=== PATIENT | male | born 1955 | race African-American/Black ===

== ENCOUNTER 2017-03-09 10:58 | Emergency (ER) | payer MEDICAID, OTHER ==
[~2017-03-09] VITALS: Ht 160 cm; Wt 84.0 kg
[~2017-03-09 10:58] MED LIST: ATEN-42 PO; ATOR20TA PO; CALC-816 PO; DOCU-272 PO; FERR-63 PO; HYDR25TA PO; KEPP500 PO; LACT10SO6 MT; LISI10TA5 PO; LORA10TA7 PO; PHEN100C12 PO; PHEN32.43 PO; PSYL540P PO; TAMS0.4C31 PO
[2017-03-09 19:22] VITALS: BP 139/85
== END 2017-03-09 19:34 | disposition home or self-care (01) ==
LOC: EDBD 11:29 → ER 11:29
DX: L03.213 Periorbital cellulitis (principal); F79 Unspecified intellectual disabilities; I10 Essential (primary) hypertension; G40.909 Epilepsy, unspecified, not intractable, without status epilepticus; F17.210 Nicotine dependence, cigarettes, uncomplicated
CPT/HCPCS: 99283

== ENCOUNTER 2019-11-11 12:48 | Emergency (ER) | payer MEDICARE, OTHER ==
[~2019-11-11] VITALS: Ht 182.9 cm; Wt 91.0 kg
[~2019-11-11 12:48] MED LIST changes: +CALC-38 PO; -CALC-816 PO; -PHEN32.43 PO; +PHEN32.46 PO
[2019-11-11 13:29] LABS: BASOPHILS % 0.5 % (0.0-2.0); EOSINOPHILS % 3.5 % (0.0-5.0); HEMATOCRIT. 42.5 % (42.0-52.0); HEMOGLOBIN. 14.3 g/dL (14.0-18.0); LYMPHOCYTES % 37.4 % (20.0-50.0); MEAN CORPUSCULAR VOLUME 92.2 fL (80.0-94.0); MEAN PLATELET VOLUME 9.8 fl (7.4-10.4); MONOCYTES % 9.3 % (2.0-8.0); NEUTROPHILS % 49.3 % (40.0-76.0); PLATELET 139 x1000/uL (130-400); RED BLOOD CELL COUNT 4.61 mill/uL (4.7-6.1); RED CELL DISTRIBUTION WIDTH 15.2 % (11.6-14.6)
[2019-11-11 13:36] LABS: CHLORIDE 101 mEq/L (98-107)
[2019-11-11 13:40] LABS: ETHANOL BLOOD < 10 mg/dL
[2019-11-11 14:08] LABS: CLARITY URINE CLEAR (CLEAR); COLOR URINE YELLOW (YELLOW); KETONES URINE NEGATIVE (NEGATIVE); LEUKOCYTE ESTERASE URINE NEGATIVE (NEGATIVE); NITRITE URINE NEGATIVE (NEGATIVE); OCCULT BLOOD URINE NEGATIVE (NEGATIVE); PROTEIN URINE 1+ (NEGATIVE); SPECIFIC GRAVITY URINE 1.017 (1.005-1.030); UROBILINOGEN URINE 0.2 E.U./dL (0.2-1.0)
[2019-11-11 14:31] LABS: *AMPHETAMINES SCREEN URINE NEGATIVE (NEGATIVE); *BARBITURATES SCREEN URINE PRESUMTIVE POSITIVE (NEGATIVE); *BENZODIAZEPINES SCREEN URINE NEGATIVE (NEGATIVE); *COCAINE SCREEN URINE NEGATIVE (NEGATIVE); METHADONE URINE SCREEN NEGATIVE (NEGATIVE); OPIATES URINE SCREEN NEGATIVE (NEGATIVE); PHENCYCLIDINE URINE SCREEN NEGATIVE (NEGATIVE)
[2019-11-11 14:32] LABS: CANNABINOID URINE SCREEN NEGATIVE (NEGATIVE)
[2019-11-11 16:00] VITALS: BP 116/79
== END 2019-11-11 16:00 | disposition home or self-care (01) ==
LOC: ER 12:48
DX: S50.312A Abrasion of left elbow, initial encounter (principal); R55 Syncope and collapse; I10 Essential (primary) hypertension; Z79.899 Other long term (current) drug therapy; Z98.890 Other specified postprocedural states; W18.30XA Fall on same level, unspecified, initial encounter; Y93.89 Activity, other specified; Y92.89 Other specified places as the place of occurrence of the external cause; Y99.8 Other external cause status
CPT/HCPCS: 36415; 80053; 80305; 80320; 81003; 84484; 85025; 93005; 99285; G0480

== ENCOUNTER 2020-06-17 22:49 | Inpatient (IN) | payer MEDICARE, OTHER ==
[~2020-06-17] VITALS: Ht 172.7 cm; Wt 94.3 kg
[2020-06-18] MEDS ORDERED: SODIUM CHLORIDE 0.9% 1,000 ML IV ONE (00:30)
[2020-06-18 02:26] LABS: BASOPHILS % 0.2 % (0.0-2.0); EOSINOPHILS % 0.3 % (0.0-5.0); HEMATOCRIT. 38.3 % (42.0-52.0); HEMOGLOBIN. 12.3 g/dL (14.0-18.0); LYMPHOCYTES % 10.4 % (20.0-50.0); MEAN CORPUSCULAR VOLUME 90.1 fL (80.0-94.0); MEAN PLATELET VOLUME 9.1 fl (7.4-10.4); MONOCYTES % 7.8 % (2.0-8.0); NEUTROPHILS % 81.3 % (40.0-76.0); PLATELET 121 x1000/uL (130-400); RED BLOOD CELL COUNT 4.26 mill/uL (4.7-6.1); RED CELL DISTRIBUTION WIDTH 15.8 % (11.6-14.6)
[2020-06-18 02:47] LABS: CHLORIDE 98 mEq/L (98-107)
[2020-06-18] MEDS ORDERED: AZITHROMYCIN 500 MG in SODIUM CHLORIDE 0.9% 250 ML IV SCH (03:00)
[2020-06-18] MEDS ORDERED: CEFTRIAXONE 1,000 MG in SODIUM CHLORIDE 0.9% 50 ML IV SCH (03:00)
[2020-06-18] MEDS ORDERED: DEXAMETHASONE 10 MG/ML VIAL IV ONE (03:30)
[2020-06-18] MEDS ORDERED: ACETAMINOPHEN 325MG TABLET PO PRN ×2 (07:30)
[2020-06-18] MEDS ORDERED: GUAIFENESIN 200MG/10ML SUGAR FREE UDC PO PRN (07:30)
[2020-06-18] MEDS ORDERED: IPRATROPIUM/ALBUTEROL 0.5-3(2.5)MG/3ML NEB NEB PRN (07:30)
[2020-06-18] MEDS ORDERED: DOCUSATE SODIUM 100MG CAPSULE PO PRN (07:30)
[2020-06-18] MEDS ORDERED: MAGNESIUM/ALUMINUM HYDROXIDE/SIMETHICONE 30ML UDC PO PRN (07:30)
[2020-06-18] MEDS ORDERED: ALBUTEROL 6.7GM HFA INHALER ORI PRN (07:30)
[2020-06-18] MEDS ORDERED: ONDANSETRON HCL 4MG/2ML INJ IV PRN (07:30)
[2020-06-18] MEDS ORDERED: CLONIDINE 0.1MG TABLET PO PRN (07:30)
[2020-06-18] MEDS ORDERED: NITROGLYCERIN 0.4MG TABLET SL SL PRN (07:30)
[2020-06-18] MEDS ORDERED: KETOROLAC 15MG/ML VIAL IV PRN (07:30)
[2020-06-18 08:43] LABS: FOLIC ACID (FOLATE) SERUM 5.3 ng/mL (>5.38)
[2020-06-18] MEDS: FAMOTIDINE 20MG TABLET PO SCH (09:00)
[2020-06-18] MEDS: ASCORBIC ACID 500 MG TABLET PO SCH ×2 (09:00→21:00)
[2020-06-18] MEDS: DEXAMETHASONE 10 MG/ML VIAL IV SCH (09:00)
[2020-06-18] MEDS: GUAIFENESIN/DM 600MG/30MG ER TAB 12HR PO SCH (09:00)
[2020-06-18] MEDS ORDERED: CEFTRIAXONE 1 G PREMIX 50 ML IV SCH (09:00)
[2020-06-18] MEDS: ALBUTEROL 6.7GM HFA INHALER ORI SCH ×3 (09:00→21:00)
[2020-06-18] MEDS: ZINC SULFATE 220 MG ( 50 ) CAPSULE PO SCH (09:00)
[2020-06-18] MEDS: LEVETIRACETAM 500MG TABLET PO SCH (09:00)
[2020-06-18] MEDS: ASPIRIN 81MG EC TABLET PO SCH (09:00)
[2020-06-18] MEDS ORDERED: AZITHROMYCIN 500 MG in DEXT 5% WATER 250 ML IV SCH (10:00)
[2020-06-18] MEDS: ENOXAPARIN 40MG/0.4ML SYR SUBCUT SCH (10:00)
[2020-06-18] MEDS ORDERED: FOLIC ACID 1 MG, THIAMINE HCL 100 MG, MVI, ADULT NO.1 10 ML in DEXTROSE 5% WATER 1,000 ML IV ONE ×4 (16:00)
[2020-06-18] MEDS: PHENYTOIN SODIUM 100MG/2ML VIAL IV SCH (18:00)
[2020-06-18] MEDS ORDERED: ZOLPIDEM TARTRATE 5MG TABLET PO PRN (21:00)
[2020-06-18] MEDS: PHENOBARBITAL 30 MG TABLET PO SCH (22:00)
[2020-06-19] MEDS: PHENYTOIN SODIUM 100MG/2ML VIAL IV SCH ×3 (02:00→18:00)
[2020-06-19] MEDS: ALBUTEROL 6.7GM HFA INHALER ORI SCH ×4 (03:00→21:17)
[2020-06-19] MEDS: CEFTRIAXONE 1 G PREMIX 50 ML IV SCH ×2 (04:00→09:00)
[2020-06-19] MEDS: PHENOBARBITAL 30 MG TABLET PO SCH ×3 (06:00→23:27)
[2020-06-19] MEDS: LEVETIRACETAM 500MG TABLET PO SCH ×3 (06:07→21:18)
[2020-06-19] MEDS: GUAIFENESIN/DM 600MG/30MG ER TAB 12HR PO SCH ×3 (06:07→21:18)
[2020-06-19] MEDS: FAMOTIDINE 20MG TABLET PO SCH ×3 (06:07→21:17)
[2020-06-19] MEDS: AZITHROMYCIN 500 MG in DEXT 5% WATER 250 ML IV SCH (06:08)
[2020-06-19 06:37] LABS: BASOPHILS % 0.2 % (0.0-2.0); EOSINOPHILS % 0.3 % (0.0-5.0); HEMATOCRIT. 39.2 % (42.0-52.0); HEMOGLOBIN. 12.7 g/dL (14.0-18.0); LYMPHOCYTES % 8.1 % (20.0-50.0); MEAN CORPUSCULAR HEMOGLOBIN 28.7 pg (28.0-32.0); MEAN CORPUSCULAR VOLUME 88.9 fL (80.0-94.0); MEAN PLATELET VOLUME 8.9 fl (7.4-10.4); MONOCYTES % 5.3 % (2.0-8.0); NEUTROPHILS % 86.1 % (40.0-76.0); PLATELET 79 x1000/uL (130-400); RED BLOOD CELL COUNT 4.41 mill/uL (4.7-6.1); RED CELL DISTRIBUTION WIDTH 15.8 % (11.6-14.6)
[2020-06-19] MEDS: DEXAMETHASONE 10 MG/ML VIAL IV SCH (09:00)
[2020-06-19] MEDS: ZINC SULFATE 220 MG ( 50 ) CAPSULE PO SCH (09:00)
[2020-06-19] MEDS: ENOXAPARIN 40MG/0.4ML SYR SUBCUT SCH (09:00)
[2020-06-19] MEDS: ASPIRIN 81MG EC TABLET PO SCH (09:00)
[2020-06-19] MEDS: ASCORBIC ACID 500 MG TABLET PO SCH ×2 (09:00→21:18)
[2020-06-19 09:14] LABS: CHLORIDE 99 mEq/L (98-107)
[2020-06-19 09:20] LABS: PHOSPHORUS 3.1 mg/dL (2.5-4.9)
[2020-06-19 20:00] VITALS: BP 121/72
[2020-06-19 21:36] VITALS: BP 124/72
[2020-06-20 00:05] VITALS: BP 123/76
[2020-06-20] MEDS: ALBUTEROL 6.7GM HFA INHALER ORI SCH ×2 (03:01→08:23)
[2020-06-20] MEDS: PHENYTOIN SODIUM 100MG/2ML VIAL IV SCH ×3 (03:01→18:26)
[2020-06-20 04:00] VITALS: BP 135/84
[2020-06-20] MEDS: AZITHROMYCIN 500 MG in DEXT 5% WATER 250 ML IV SCH (04:37)
[2020-06-20] MEDS: PHENOBARBITAL 30 MG TABLET PO SCH ×3 (05:20→22:20)
[2020-06-20] MEDS: ASCORBIC ACID 500 MG TABLET PO SCH ×2 (08:22→22:18)
[2020-06-20] MEDS: ZINC SULFATE 220 MG ( 50 ) CAPSULE PO SCH (08:22)
[2020-06-20] MEDS: GUAIFENESIN/DM 600MG/30MG ER TAB 12HR PO SCH ×2 (08:22→22:19)
[2020-06-20] MEDS: LEVETIRACETAM 500MG TABLET PO SCH ×2 (08:22→22:19)
[2020-06-20] MEDS: DEXAMETHASONE 10 MG/ML VIAL IV SCH (08:22)
[2020-06-20] MEDS: ASPIRIN 81MG EC TABLET PO SCH (08:22)
[2020-06-20] MEDS: FAMOTIDINE 20MG TABLET PO SCH ×2 (08:22→22:19)
[2020-06-20] MEDS: ENOXAPARIN 40MG/0.4ML SYR SUBCUT SCH (08:23)
[2020-06-20] MEDS: CEFTRIAXONE 1,000 MG in DEXTROSE 5% WATER 50 ML IV SCH (09:51)
[2020-06-20 14:00] VITALS: BP 125/69
[2020-06-20 20:00] VITALS: BP 99/67
[2020-06-20] MEDS ORDERED: ALBUTEROL (0.083%) 2.5MG/3ML NEB HHN SCH (21:00)
[2020-06-20 22:00] VITALS: BP 105/70
[2020-06-20 23:50] VITALS: BP 106/60
[2020-06-21] VITALS (11 sets, daily range): BP systolic 94–122; BP diastolic 59–81
[2020-06-21] MEDS: AZITHROMYCIN 500 MG in DEXT 5% WATER 250 ML IV SCH (00:30)
[2020-06-21] MEDS: PHENYTOIN 100 MG/4 ML UDC NG SCH ×3 (01:43→17:31)
[2020-06-21] MEDS: PHENOBARBITAL 30 MG TABLET PO SCH ×3 (06:02→22:55)
[2020-06-21] MEDS: ASPIRIN 81MG EC TABLET PO SCH (09:53)
[2020-06-21] MEDS: LEVETIRACETAM 500MG TABLET PO SCH ×2 (09:53→20:38)
[2020-06-21] MEDS: GUAIFENESIN/DM 600MG/30MG ER TAB 12HR PO SCH ×2 (09:53→20:38)
[2020-06-21] MEDS: ASCORBIC ACID 500 MG TABLET PO SCH ×2 (09:53→20:38)
[2020-06-21] MEDS: ZINC SULFATE 220 MG ( 50 ) CAPSULE PO SCH (09:53)
[2020-06-21] MEDS: FAMOTIDINE 20MG TABLET PO SCH ×2 (09:53→20:38)
[2020-06-21] MEDS: CEFTRIAXONE 1,000 MG in DEXTROSE 5% WATER 50 ML IV SCH ×2 (09:54→10:00)
[2020-06-21] MEDS: DEXAMETHASONE 10 MG/ML VIAL IV SCH (09:54)
[2020-06-21] MEDS: ENOXAPARIN 40MG/0.4ML SYR SUBCUT SCH (10:02)
[2020-06-21] MEDS ORDERED: LIDOCAINE HCL 1% 20ML VIAL (Pyxis) INJ ONE (10:48)
[2020-06-21] MEDS ORDERED: FOLIC ACID 1 MG in SODIUM CHLORIDE 0.9% 500 ML IV NR (13:00)
[2020-06-21] MEDS: AZITHROMYCIN 500 MG TABLET PO SCH (14:00)
[2020-06-22] VITALS (15 sets, daily range): BP systolic 83–102; BP diastolic 53–62
[2020-06-22] MEDS: PHENYTOIN 100 MG/4 ML UDC NG SCH ×3 (01:10→18:17)
[2020-06-22] MEDS: PHENOBARBITAL 30 MG TABLET PO SCH ×3 (06:09→21:45)
[2020-06-22] MEDS: ENOXAPARIN 40MG/0.4ML SYR SUBCUT SCH (09:00)
[2020-06-22] MEDS: GUAIFENESIN/DM 600MG/30MG ER TAB 12HR PO SCH ×2 (09:25→21:45)
[2020-06-22] MEDS: CEFTRIAXONE 1,000 MG in DEXTROSE 5% WATER 50 ML IV SCH (09:26)
[2020-06-22] MEDS: DEXAMETHASONE 10 MG/ML VIAL IV SCH (09:26)
[2020-06-22] MEDS: ASPIRIN 81MG EC TABLET PO SCH (09:26)
[2020-06-22] MEDS: FAMOTIDINE 20MG TABLET PO SCH ×2 (09:26→21:45)
[2020-06-22] MEDS: FOLIC ACID 1MG TABLET PO SCH (09:28)
[2020-06-22] MEDS: ASCORBIC ACID 500 MG TABLET PO SCH ×2 (09:28→21:45)
[2020-06-22] MEDS: LEVETIRACETAM 500MG TABLET PO SCH ×2 (09:50→21:45)
[2020-06-22] MEDS: ZINC SULFATE 220 MG ( 50 ) CAPSULE PO SCH (09:51)
[2020-06-22] MEDS: AZITHROMYCIN 500 MG TABLET PO SCH (09:51)
[2020-06-23] VITALS (12 sets, daily range): BP systolic 86–106; BP diastolic 51–69
[2020-06-23] MEDS: PHENYTOIN 100 MG/4 ML UDC NG SCH ×3 (02:26→17:22)
[2020-06-23] MEDS: PHENOBARBITAL 30 MG TABLET PO SCH ×3 (05:51→21:11)
[2020-06-23] MEDS: ENOXAPARIN 40MG/0.4ML SYR SUBCUT SCH (09:00)
[2020-06-23] MEDS: FAMOTIDINE 20MG TABLET PO SCH ×2 (09:18→21:10)
[2020-06-23] MEDS: FOLIC ACID 1MG TABLET PO SCH (09:18)
[2020-06-23] MEDS: AZITHROMYCIN 500 MG TABLET PO SCH (09:18)
[2020-06-23] MEDS: LEVETIRACETAM 500MG TABLET PO SCH ×2 (09:18→21:10)
[2020-06-23] MEDS: ASPIRIN 81MG EC TABLET PO SCH (09:18)
[2020-06-23] MEDS: ASCORBIC ACID 500 MG TABLET PO SCH ×2 (09:19→21:10)
[2020-06-23] MEDS: GUAIFENESIN/DM 600MG/30MG ER TAB 12HR PO SCH ×2 (09:19→21:11)
[2020-06-23] MEDS: ZINC SULFATE 220 MG ( 50 ) CAPSULE PO SCH (09:19)
[2020-06-23] MEDS: DEXAMETHASONE 10 MG/ML VIAL IV SCH (09:20)
[2020-06-23] MEDS: MIDODRINE HCL 2.5MG TABLET PO SCH ×2 (14:08→17:18)
[2020-06-23] MEDS ORDERED: IPRATROPIUM/ALBUTEROL 0.5-3(2.5)MG/3ML NEB HHN SCH (15:13)
[2020-06-23 15:19] LABS: BG BASE EXCESS 1.2 mmol/L (-2.0-2.0); BG CARBOXYHEMOGLOBIN 0.2 % (0.5-1.5); BG DEOXYHEMOGLOBIN 7.9 % (0.0-5.0); BG FRACTION INSPIRED OXYGEN 99.9; BG HCO3 ACT 27.6 mmol/L (22.0-26.0); BG METHEMOGLOBIN 0.4 % (0.0-1.5); BG OXYGEN SATURATION 92.1 % (92.0-98.5); BG OXYHEMOGLOBIN 91.5 % (94.0-97.0); BG PCO2 51.3 mmHg (35.0-45.0); BG PH 7.348 (7.350-7.450); BG PO2 65.1 mmHg (75.0-100.0); BG SAMPLE SITE LEFT RADIAL; BG TOTAL HEMOGLOBIN 12.4 g/dL (12.0-18.0); BG VENT MODE MASK - NRB
[2020-06-23] MEDS: METHYLPREDNISOLONE SOD SUCC 40 MG/ML VIAL IV SCH ×2 (17:18→23:12)
[2020-06-24] VITALS (12 sets, daily range): BP systolic 85–116; BP diastolic 53–72
[2020-06-24] MEDS: PHENYTOIN 100 MG/4 ML UDC NG SCH ×3 (02:45→17:48)
[2020-06-24] MEDS: FOLIC ACID 1MG TABLET PO SCH (08:10)
[2020-06-24] MEDS: ZINC SULFATE 220 MG ( 50 ) CAPSULE PO SCH (08:10)
[2020-06-24] MEDS: GUAIFENESIN/DM 600MG/30MG ER TAB 12HR PO SCH ×2 (08:11→21:16)
[2020-06-24] MEDS: METHYLPREDNISOLONE SOD SUCC 40 MG/ML VIAL IV SCH ×3 (08:11→23:25)
[2020-06-24] MEDS: MIDODRINE HCL 2.5MG TABLET PO SCH ×3 (08:11→17:48)
[2020-06-24] MEDS: LEVETIRACETAM 500MG TABLET PO SCH ×2 (08:11→21:16)
[2020-06-24] MEDS: ASPIRIN 81MG EC TABLET PO SCH (08:11)
[2020-06-24] MEDS: FAMOTIDINE 20MG TABLET PO SCH ×2 (08:11→21:16)
[2020-06-24] MEDS: ASCORBIC ACID 500 MG TABLET PO SCH ×2 (08:11→21:16)
[2020-06-24] MEDS: ENOXAPARIN 40MG/0.4ML SYR SUBCUT SCH (09:00)
[2020-06-24 09:40] LABS: BASOPHILS % 0.3 % (0.0-2.0); HEMATOCRIT. 35.1 % (42.0-52.0); HEMOGLOBIN. 11.5 g/dL (14.0-18.0); LYMPHOCYTES % 10.2 % (20.0-50.0); MEAN CORPUSCULAR HEMOGLOBIN 29.1 pg (28.0-32.0); MEAN CORPUSCULAR VOLUME 88.7 fL (80.0-94.0); MEAN PLATELET VOLUME 9.1 fl (7.4-10.4); MONOCYTES % 7.1 % (2.0-8.0); NEUTROPHILS % 82.4 % (40.0-76.0); PLATELET 112 x1000/uL (130-400); RED BLOOD CELL COUNT 3.96 mill/uL (4.7-6.1); RED CELL DISTRIBUTION WIDTH 15.3 % (11.6-14.6)
[2020-06-24] MEDS ORDERED: CEFEPIME 1,000 MG in DEXTROSE 5% WATER 50 ML IV SCH (14:15)
[2020-06-24 15:22] LABS: BG BASE EXCESS 4.9 mmol/L (-2.0-2.0); BG CARBOXYHEMOGLOBIN 0.1 % (0.5-1.5); BG DEOXYHEMOGLOBIN 3.4 % (0.0-5.0); BG HCO3 ACT 32.4 mmol/L (22.0-26.0); BG METHEMOGLOBIN 0.4 % (0.0-1.5); BG OXYGEN SATURATION 96.6 % (92.0-98.5); BG OXYHEMOGLOBIN 96.1 % (94.0-97.0); BG PCO2 62.8 mmHg (35.0-45.0); BG PO2 88.5 mmHg (75.0-100.0); BG SAMPLE SITE RIGHT RADIAL; BG TOTAL HEMOGLOBIN 11.4 g/dL (12.0-18.0); BG VENT MODE MASK - NRB
[2020-06-24] MEDS ORDERED: ALBUMIN HUMAN 25GM/100ML (25%) IV SCH (16:00)
[2020-06-24 16:54] LABS: INR 1.2; PROTHROMBIN TIME 12.4 sec (9.6-11.0)
[2020-06-24] MEDS: CEFEPIME 1,000 MG in DEXTROSE 5% WATER 50 ML IV SCH (17:44)
[2020-06-24] MEDS: METRONIDAZOLE 500 MG PREMIX 100 ML IV SCH ×2 (18:00→23:24)
[2020-06-24] MEDS: SODIUM CHLORIDE 0.45% 1,000 ML IV SCH (22:00)
[2020-06-25] VITALS (12 sets, daily range): BP systolic 91–117; BP diastolic 49–74
[2020-06-25] MEDS: PHENYTOIN 100 MG/4 ML UDC NG SCH ×3 (01:53→17:52)
[2020-06-25] MEDS: SODIUM CHLORIDE 0.45% 1,000 ML IV SCH (07:40)
[2020-06-25] MEDS: METRONIDAZOLE 500 MG PREMIX 100 ML IV SCH ×3 (07:43→22:19)
[2020-06-25] MEDS: ENOXAPARIN 40MG/0.4ML SYR SUBCUT SCH (09:00)
[2020-06-25] MEDS: MIDODRINE HCL 2.5MG TABLET PO SCH ×3 (09:41→17:52)
[2020-06-25] MEDS: ASPIRIN 81MG EC TABLET PO SCH (09:41)
[2020-06-25] MEDS: CEFEPIME 1,000 MG in DEXTROSE 5% WATER 50 ML IV SCH (09:41)
[2020-06-25] MEDS: GUAIFENESIN/DM 600MG/30MG ER TAB 12HR PO SCH ×2 (09:41→22:20)
[2020-06-25] MEDS: FAMOTIDINE 20MG TABLET PO SCH ×2 (09:41→22:20)
[2020-06-25] MEDS: ASCORBIC ACID 500 MG TABLET PO SCH ×2 (09:42→22:20)
[2020-06-25] MEDS: LEVETIRACETAM 500MG TABLET PO SCH ×2 (09:42→22:20)
[2020-06-25] MEDS: FOLIC ACID 1MG TABLET PO SCH (09:42)
[2020-06-25] MEDS: METHYLPREDNISOLONE SOD SUCC 40 MG/ML VIAL IV SCH ×2 (09:42→17:52)
[2020-06-25] MEDS: ZINC SULFATE 220 MG ( 50 ) CAPSULE PO SCH (09:42)
[2020-06-25] MEDS: ACETYLCYSTEINE 100MG/ML 10% VIAL 4ML INH SCH ×2 (09:53→15:03)
[2020-06-25] MEDS: IPRATROPIUM/ALBUTEROL 0.5-3(2.5)MG/3ML NEB HHN SCH ×2 (09:54→15:03)
[2020-06-25 14:15] LABS: BG BASE EXCESS 6.3 mmol/L (-2.0-2.0); BG CARBOXYHEMOGLOBIN 0.3 % (0.5-1.5); BG DEOXYHEMOGLOBIN 1.5 % (0.0-5.0); BG FRACTION INSPIRED OXYGEN 80; BG HCO3 ACT 32.9 mmol/L (22.0-26.0); BG METHEMOGLOBIN 0.1 % (0.0-1.5); BG OXYGEN SATURATION 98.5 % (92.0-98.5); BG OXYHEMOGLOBIN 98.1 % (94.0-97.0); BG PCO2 58.7 mmHg (35.0-45.0); BG PH 7.367 (7.350-7.450); BG PO2 132.3 mmHg (75.0-100.0); BG SAMPLE SITE RIGHT RADIAL; BG TOTAL HEMOGLOBIN 10.6 g/dL (12.0-18.0); BG TOTAL RESPIRATORY RATE 36 b/min; BG VENT MODE MASK - BIPAP
[2020-06-26] VITALS (12 sets, daily range): BP systolic 111–128; BP diastolic 61–83
[2020-06-26] MEDS: SODIUM CHLORIDE 0.45% 1,000 ML IV SCH ×2 (00:50→03:43)
[2020-06-26] MEDS: METHYLPREDNISOLONE SOD SUCC 40 MG/ML VIAL IV SCH ×3 (00:50→17:16)
[2020-06-26] MEDS: PHENYTOIN 100 MG/4 ML UDC NG SCH ×3 (02:14→17:16)
[2020-06-26] MEDS: METRONIDAZOLE 500 MG PREMIX 100 ML IV SCH (06:47)
[2020-06-26] MEDS: IPRATROPIUM/ALBUTEROL 0.5-3(2.5)MG/3ML NEB HHN SCH ×4 (07:38→20:30)
[2020-06-26] MEDS: ACETYLCYSTEINE 100MG/ML 10% VIAL 4ML INH SCH (07:39)
[2020-06-26] MEDS: ASPIRIN 81MG EC TABLET PO SCH (09:00)
[2020-06-26] MEDS: CEFEPIME 1,000 MG in DEXTROSE 5% WATER 50 ML IV SCH (10:08)
[2020-06-26] MEDS: FAMOTIDINE 20MG TABLET PO SCH ×2 (10:09→22:02)
[2020-06-26] MEDS: ASCORBIC ACID 500 MG TABLET PO SCH ×2 (10:09→22:02)
[2020-06-26] MEDS: ZINC SULFATE 220 MG ( 50 ) CAPSULE PO SCH (10:09)
[2020-06-26] MEDS: LEVETIRACETAM 500MG TABLET PO SCH ×2 (10:09→22:01)
[2020-06-26] MEDS: FOLIC ACID 1MG TABLET PO SCH (10:09)
[2020-06-26] MEDS: MIDODRINE HCL 2.5MG TABLET PO SCH ×3 (10:11→17:16)
[2020-06-26] MEDS: ENOXAPARIN 40MG/0.4ML SYR SUBCUT SCH (10:13)
[2020-06-26 12:28] LABS: PHENOBARBITAL 28.2 ug/mL (15.0-40.0)
[2020-06-26] MEDS: ASPIRIN 81MG TABLET PO SCH (13:24)
[2020-06-26] MEDS: METRONIDAZOLE 500MG TABLET PO SCH ×2 (13:25→22:09)
[2020-06-26 15:16] LABS: BG BASE EXCESS 6.7 mmol/L (-2.0-2.0); BG CARBOXYHEMOGLOBIN 0.1 % (0.5-1.5); BG DEOXYHEMOGLOBIN 2.8 % (0.0-5.0); BG HCO3 ACT 34.1 mmol/L (22.0-26.0); BG METHEMOGLOBIN 0.5 % (0.0-1.5); BG OXYGEN SATURATION 97.2 % (92.0-98.5); BG OXYHEMOGLOBIN 96.6 % (94.0-97.0); BG PCO2 64.4 mmHg (35.0-45.0); BG PH 7.342 (7.350-7.450); BG PO2 99.2 mmHg (75.0-100.0); BG SAMPLE SITE RIGHT RADIAL; BG TOTAL HEMOGLOBIN 11.4 g/dL (12.0-18.0); BG VENT MODE MASK - BIPAP
[2020-06-26 17:16] LABS: CLARITY URINE TURBID (CLEAR); COLOR URINE ORANGE (YELLOW); KETONES URINE NEGATIVE (NEGATIVE); LEUKOCYTE ESTERASE URINE 2+ (NEGATIVE); NITRITE URINE NEGATIVE (NEGATIVE); OCCULT BLOOD URINE 2+ (NEGATIVE); PH URINE 5.5 (4.5-8.0); PROTEIN URINE 2+ (NEGATIVE); SPECIFIC GRAVITY URINE 1.022 (1.005-1.030); UROBILINOGEN URINE 0.2 E.U./dL (0.2-1.0)
[2020-06-27] VITALS (12 sets, daily range): BP systolic 104–131; BP diastolic 62–82
[2020-06-27] MEDS: ACETYLCYSTEINE 100MG/ML 10% VIAL 4ML INH SCH (00:10)
[2020-06-27] MEDS: IPRATROPIUM/ALBUTEROL 0.5-3(2.5)MG/3ML NEB HHN SCH ×4 (00:10→20:40)
[2020-06-27] MEDS: METHYLPREDNISOLONE SOD SUCC 40 MG/ML VIAL IV SCH ×3 (00:48→17:18)
[2020-06-27] MEDS: PHENYTOIN 100 MG/4 ML UDC NG SCH ×3 (03:12→17:18)
[2020-06-27] MEDS: METRONIDAZOLE 500MG TABLET PO SCH ×3 (05:43→20:36)
[2020-06-27] MEDS: SODIUM CHLORIDE 0.45% 1,000 ML IV SCH (10:07)
[2020-06-27] MEDS: ENOXAPARIN 40MG/0.4ML SYR SUBCUT SCH (10:30)
[2020-06-27] MEDS: FAMOTIDINE 20MG TABLET PO SCH ×2 (10:31→20:36)
[2020-06-27] MEDS: FOLIC ACID 1MG TABLET PO SCH (10:31)
[2020-06-27] MEDS: LEVETIRACETAM 500MG TABLET PO SCH ×2 (10:31→20:36)
[2020-06-27] MEDS: ASPIRIN 81MG TABLET PO SCH (10:31)
[2020-06-27] MEDS: ZINC SULFATE 220 MG ( 50 ) CAPSULE PO SCH (10:31)
[2020-06-27] MEDS: MIDODRINE HCL 2.5MG TABLET PO SCH ×3 (10:32→17:20)
[2020-06-27] MEDS: ASCORBIC ACID 500 MG TABLET PO SCH ×2 (10:33→20:36)
[2020-06-27] MEDS: CEFEPIME 1,000 MG in DEXTROSE 5% WATER 50 ML IV SCH ×2 (11:31→20:39)
[2020-06-27 13:01] LABS: BASOPHILS % 0.1 % (0.0-2.0); EOSINOPHILS % 0.2 % (0.0-5.0); HEMATOCRIT. 30.9 % (42.0-52.0); HEMOGLOBIN. 9.9 g/dL (14.0-18.0); LYMPHOCYTES % 7.1 % (20.0-50.0); MEAN CORPUSCULAR HEMOGLOBIN 29.1 pg (28.0-32.0); MEAN CORPUSCULAR VOLUME 91.1 fL (80.0-94.0); MEAN PLATELET VOLUME 9.5 fl (7.4-10.4); MONOCYTES % 7.1 % (2.0-8.0); NEUTROPHILS % 85.5 % (40.0-76.0); PLATELET 95 x1000/uL (130-400); RED BLOOD CELL COUNT 3.39 mill/uL (4.7-6.1); RED CELL DISTRIBUTION WIDTH 16.1 % (11.6-14.6)
[2020-06-27 13:10] LABS: CHLORIDE 107 mEq/L (98-107)
[2020-06-27 13:18] LABS: PHOSPHORUS 2.5 mg/dL (2.5-4.9)
[2020-06-27] MEDS ORDERED: DEXTROSE 50% WATER 50ML SYRINGE IV PRN (14:30)
[2020-06-27] MEDS ORDERED: INSULIN LISPRO 100 UNITS/ML SUBCUT NR ×2 (14:30→18:45)
[2020-06-27] MEDS ORDERED: SODIUM POLYSTYRENE SULFONATE 15 G/60 ML BOT PO ONE (14:30)
[2020-06-27] MEDS ORDERED: SODIUM POLYSTYRENE SULFONATE 15 G/60 ML BOT PO NR (16:00)
[2020-06-27] MEDS ORDERED: INSULIN LISPRO 100 UNITS/ML SUBCUT SCH (18:00)
[2020-06-27] MEDS ORDERED: SODIUM POLYSTYRENE SULFONATE 15 G/60 ML BOT PO PRN (18:00)
[2020-06-27] MEDS ORDERED: BLOOD SUGAR DIAGNOSTIC STRIP TEST SCH (18:00)
[2020-06-27 18:04] LABS: HEMATOCRIT. 32.5 % (42.0-52.0); HEMOGLOBIN. 10.2 g/dL (14.0-18.0); MEAN CORPUSCULAR HEMOGLOBIN 28.7 pg (28.0-32.0); MEAN CORPUSCULAR VOLUME 91.6 fL (80.0-94.0); MEAN PLATELET VOLUME 9.6 fl (7.4-10.4); PLATELET 98 x1000/uL (130-400); RED BLOOD CELL COUNT 3.55 mill/uL (4.7-6.1); RED CELL DISTRIBUTION WIDTH 16.1 % (11.6-14.6)
[2020-06-27 18:09] LABS: CHLORIDE 109 mEq/L (98-107)
[2020-06-27] MEDS ORDERED: VANCOMYCIN 1,750 MG in DEXT 5% WATER 250 ML IV NR (18:30)
[2020-06-27 19:03] LABS: PLATELET ESTIMATE DECREASED
[2020-06-27] MEDS: LEVOFLOXACIN 500MG TABLET PO SCH (19:04)
[2020-06-27] MEDS: BLOOD SUGAR DIAGNOSTIC STRIP TEST SCH ×2 (20:38→21:59)
[2020-06-27] MEDS: INSULIN LISPRO 100 UNITS/ML SUBCUT SCH ×2 (20:38→21:59)
[2020-06-27 23:41] LABS: CHLORIDE 111 mEq/L (98-107)
[2020-06-28] VITALS (7 sets, daily range): BP systolic 103–120; BP diastolic 66–83
[2020-06-28] MEDS ORDERED: INSULIN LISPRO 100 UNITS/ML SUBCUT SCH
[2020-06-28] MEDS: BLOOD SUGAR DIAGNOSTIC STRIP TEST SCH ×6 (00:37→20:50)
[2020-06-28] MEDS: METHYLPREDNISOLONE SOD SUCC 40 MG/ML VIAL IV SCH ×3 (00:37→15:56)
[2020-06-28] MEDS: INSULIN LISPRO 100 UNITS/ML SUBCUT SCH ×6 (00:38→20:59)
[2020-06-28] MEDS: PHENYTOIN 100 MG/4 ML UDC NG SCH ×3 (01:13→17:15)
[2020-06-28] MEDS: ACETYLCYSTEINE 100MG/ML 10% VIAL 4ML INH SCH ×2 (01:30→14:00)
[2020-06-28] MEDS: IPRATROPIUM/ALBUTEROL 0.5-3(2.5)MG/3ML NEB HHN SCH ×2 (01:30→10:00)
[2020-06-28 01:58] LABS: HEMATOCRIT. 29.5 % (42.0-52.0); HEMOGLOBIN. 9.6 g/dL (14.0-18.0); MEAN CORPUSCULAR HEMOGLOBIN 29.6 pg (28.0-32.0); MEAN CORPUSCULAR VOLUME 90.9 fL (80.0-94.0); MEAN PLATELET VOLUME 9.6 fl (7.4-10.4); PLATELET 95 x1000/uL (130-400); RED BLOOD CELL COUNT 3.25 mill/uL (4.7-6.1); RED CELL DISTRIBUTION WIDTH 15.5 % (11.6-14.6)
[2020-06-28 02:08] LABS: CHLORIDE 110 mEq/L (98-107)
[2020-06-28 02:14] LABS: PHOSPHORUS 2.7 mg/dL (2.5-4.9)
[2020-06-28 02:23] LABS: PLATELET ESTIMATE DECREASED
[2020-06-28] MEDS: METRONIDAZOLE 500MG TABLET PO SCH ×3 (06:24→21:00)
[2020-06-28] MEDS: FOLIC ACID 1MG TABLET PO SCH (09:42)
[2020-06-28] MEDS: LEVETIRACETAM 500MG TABLET PO SCH ×2 (09:42→20:57)
[2020-06-28] MEDS: ASPIRIN 81MG TABLET PO SCH (09:42)
[2020-06-28] MEDS: CEFEPIME 1,000 MG in DEXTROSE 5% WATER 50 ML IV SCH ×2 (09:42→21:27)
[2020-06-28] MEDS: ENOXAPARIN 40MG/0.4ML SYR SUBCUT SCH (09:42)
[2020-06-28] MEDS: MIDODRINE HCL 2.5MG TABLET PO SCH ×3 (09:46→17:15)
[2020-06-28] MEDS: FAMOTIDINE 20MG TABLET PO SCH ×2 (09:47→20:57)
[2020-06-28] MEDS: ZINC SULFATE 220 MG ( 50 ) CAPSULE PO SCH (09:47)
[2020-06-28] MEDS: LEVOFLOXACIN 500MG TABLET PO SCH (10:11)
[2020-06-28] MEDS: ASCORBIC ACID 500 MG TABLET PO SCH ×2 (10:11→20:57)
[2020-06-28] MEDS ORDERED: VANCOMYCIN 1250MG in DEXTROSE 5% WATER 250ML IV SCH (11:00)
[2020-06-28] MEDS ORDERED: SODIUM POLYSTYRENE SULFONATE 15 G/60 ML BOT PO NR (12:30)
[2020-06-28 13:03] LABS: HEMATOCRIT. 31.9 % (42.0-52.0); HEMOGLOBIN. 10.2 g/dL (14.0-18.0); MEAN CORPUSCULAR VOLUME 90.7 fL (80.0-94.0); MEAN PLATELET VOLUME 9.7 fl (7.4-10.4); PLATELET 84 x1000/uL (130-400); RED BLOOD CELL COUNT 3.51 mill/uL (4.7-6.1); RED CELL DISTRIBUTION WIDTH 15.8 % (11.6-14.6)
[2020-06-28 13:11] LABS: CHLORIDE 111 mEq/L (98-107)
[2020-06-28 13:16] LABS: PHOSPHORUS 2.9 mg/dL (2.5-4.9)
[2020-06-28 13:35] LABS: PLATELET ESTIMATE DECREASED
[2020-06-28] MEDS: VANCOMYCIN 1,500 MG in SODIUM CHLORIDE 0.9% 250 ML IV SCH (15:55)
[2020-06-28 16:54] LABS: CHLORIDE 111 mEq/L (98-107)
[2020-06-29] VITALS: BP 116/75
[2020-06-29] MEDS: METHYLPREDNISOLONE SOD SUCC 40 MG/ML VIAL IV SCH ×3 (01:47→16:36)
[2020-06-29] MEDS: PHENYTOIN 100 MG/4 ML UDC NG SCH ×3 (01:53→18:16)
[2020-06-29 04:00] VITALS: BP 125/73
[2020-06-29] MEDS: BLOOD SUGAR DIAGNOSTIC STRIP TEST SCH ×3 (05:36→18:05)
[2020-06-29] MEDS: VANCOMYCIN 1,500 MG in SODIUM CHLORIDE 0.9% 250 ML IV SCH (05:45)
[2020-06-29] MEDS: METRONIDAZOLE 500MG TABLET PO SCH ×3 (05:45→22:15)
[2020-06-29 06:06] LABS: HEMATOCRIT. 30.1 % (42.0-52.0); HEMOGLOBIN. 9.6 g/dL (14.0-18.0); MEAN CORPUSCULAR HEMOGLOBIN 28.9 pg (28.0-32.0); MEAN CORPUSCULAR VOLUME 90.8 fL (80.0-94.0); MEAN PLATELET VOLUME 10.4 fl (7.4-10.4); PLATELET 95 x1000/uL (130-400); RED BLOOD CELL COUNT 3.32 mill/uL (4.7-6.1); RED CELL DISTRIBUTION WIDTH 15.8 % (11.6-14.6)
[2020-06-29] MEDS: INSULIN LISPRO 100 UNITS/ML SUBCUT SCH ×3 (06:44→18:15)
[2020-06-29 06:49] LABS: CHLORIDE 111 mEq/L (98-107)
[2020-06-29 07:08] LABS: PHOSPHORUS 3.4 mg/dL (2.5-4.9)
[2020-06-29 08:00] VITALS: BP 117/68
[2020-06-29] MEDS: IPRATROPIUM/ALBUTEROL 0.5-3(2.5)MG/3ML NEB HHN SCH ×3 (08:14→22:26)
[2020-06-29] MEDS: ASPIRIN 81MG TABLET PO SCH (09:27)
[2020-06-29] MEDS: FAMOTIDINE 20MG TABLET PO SCH ×2 (09:30→22:15)
[2020-06-29] MEDS: ASCORBIC ACID 500 MG TABLET PO SCH ×2 (09:30→22:15)
[2020-06-29] MEDS: ZINC SULFATE 220 MG ( 50 ) CAPSULE PO SCH (09:30)
[2020-06-29] MEDS: LEVETIRACETAM 500MG TABLET PO SCH ×2 (09:30→22:15)
[2020-06-29] MEDS: FOLIC ACID 1MG TABLET PO SCH (09:30)
[2020-06-29] MEDS: MIDODRINE HCL 2.5MG TABLET PO SCH ×3 (09:32→18:16)
[2020-06-29] MEDS: ENOXAPARIN 40MG/0.4ML SYR SUBCUT SCH (09:58)
[2020-06-29] MEDS: LEVOFLOXACIN 500MG TABLET PO SCH (09:59)
[2020-06-29] MEDS: CEFEPIME 1,000 MG in DEXTROSE 5% WATER 50 ML IV SCH ×2 (10:42→22:15)
[2020-06-29 12:00] VITALS: BP 100/68
[2020-06-29 13:00] LABS: PLATELET ESTIMATE SLIGHTLY DECREASED
[2020-06-29] MEDS: SODIUM CHLORIDE 0.45% 1,000 ML IV SCH (13:28)
[2020-06-29 14:51] LABS: CHLORIDE 111 mEq/L (98-107)
[2020-06-29 15:42] LABS: CLARITY URINE TURBID (CLEAR); COLOR URINE YELLOW (YELLOW); KETONES URINE NEGATIVE (NEGATIVE); LEUKOCYTE ESTERASE URINE 1+ (NEGATIVE); NITRITE URINE NEGATIVE (NEGATIVE); OCCULT BLOOD URINE 3+ (NEGATIVE); PH URINE 5.5 (4.5-8.0); PROTEIN URINE 1+ (NEGATIVE); SPECIFIC GRAVITY URINE 1.023 (1.005-1.030); UROBILINOGEN URINE 0.2 E.U./dL (0.2-1.0)
[2020-06-29 16:00] VITALS: BP 115/62
[2020-06-29] MEDS ORDERED: SODIUM POLYSTYRENE SULFONATE 15 G/60 ML BOT PO NR (17:00)
[2020-06-29 20:00] VITALS: BP 110/69
[2020-06-30] VITALS (11 sets, daily range): BP systolic 103–139; BP diastolic 57–88
[2020-06-30] MEDS: METHYLPREDNISOLONE SOD SUCC 40 MG/ML VIAL IV SCH ×4 (00:20→23:58)
[2020-06-30] MEDS: INSULIN LISPRO 100 UNITS/ML SUBCUT SCH ×5 (00:28→23:59)
[2020-06-30] MEDS: VANCOMYCIN 1,500 MG in SODIUM CHLORIDE 0.9% 250 ML IV SCH (01:35)
[2020-06-30] MEDS: PHENYTOIN 100 MG/4 ML UDC NG SCH ×3 (01:35→18:13)
[2020-06-30] MEDS: IPRATROPIUM/ALBUTEROL 0.5-3(2.5)MG/3ML NEB HHN SCH ×4 (03:57→15:34)
[2020-06-30] MEDS: BLOOD SUGAR DIAGNOSTIC STRIP TEST SCH ×4 (06:00→18:20)
[2020-06-30] MEDS: ACETYLCYSTEINE 100MG/ML 10% VIAL 4ML INH SCH ×3 (06:10→15:34)
[2020-06-30 08:33] LABS: BASOPHILS % 0.3 % (0.0-2.0); EOSINOPHILS % 0.3 % (0.0-5.0); HEMATOCRIT. 28.2 % (42.0-52.0); LYMPHOCYTES % 12.3 % (20.0-50.0); MEAN CORPUSCULAR HEMOGLOBIN 29.2 pg (28.0-32.0); MEAN CORPUSCULAR VOLUME 91.6 fL (80.0-94.0); MEAN PLATELET VOLUME 10.6 fl (7.4-10.4); NEUTROPHILS % 82.1 % (40.0-76.0); PLATELET 96 x1000/uL (130-400); RED BLOOD CELL COUNT 3.08 mill/uL (4.7-6.1); RED CELL DISTRIBUTION WIDTH 15.4 % (11.6-14.6)
[2020-06-30 08:44] LABS: CHLORIDE 109 mEq/L (98-107)
[2020-06-30] MEDS: LEVETIRACETAM 500MG TABLET PO SCH ×2 (09:00→21:24)
[2020-06-30] MEDS: ASCORBIC ACID 500 MG TABLET PO SCH ×2 (09:22→21:24)
[2020-06-30] MEDS: ENOXAPARIN 40MG/0.4ML SYR SUBCUT SCH (09:22)
[2020-06-30] MEDS: FOLIC ACID 1MG TABLET PO SCH (09:23)
[2020-06-30] MEDS: ASPIRIN 81MG TABLET PO SCH (09:23)
[2020-06-30] MEDS: FAMOTIDINE 20MG TABLET PO SCH ×2 (09:23→21:24)
[2020-06-30] MEDS: ZINC SULFATE 220 MG ( 50 ) CAPSULE PO SCH (09:23)
[2020-06-30] MEDS: CEFEPIME 1,000 MG in DEXTROSE 5% WATER 50 ML IV SCH ×2 (09:24→21:24)
[2020-06-30] MEDS: MIDODRINE HCL 2.5MG TABLET PO SCH ×3 (09:24→18:14)
[2020-06-30] MEDS: LEVOFLOXACIN 500MG TABLET PO SCH (09:33)
[2020-06-30] MEDS: VANCOMYCIN 1,250 MG in DEXT 5% WATER 250 ML IV SCH (18:12)
[2020-07-01] VITALS (18 sets, daily range): BP systolic 98–127; BP diastolic 54–76
[2020-07-01] MEDS: PHENYTOIN 100 MG/4 ML UDC NG SCH ×3 (01:35→17:51)
[2020-07-01] MEDS: ACETYLCYSTEINE 100MG/ML 10% VIAL 4ML INH SCH ×3 (05:33→17:14)
[2020-07-01] MEDS: INSULIN LISPRO 100 UNITS/ML SUBCUT SCH ×3 (05:34→17:55)
[2020-07-01] MEDS: BLOOD SUGAR DIAGNOSTIC STRIP TEST SCH ×4 (06:46→18:00)
[2020-07-01] MEDS: IPRATROPIUM/ALBUTEROL 0.5-3(2.5)MG/3ML NEB HHN SCH ×3 (08:05→20:14)
[2020-07-01] MEDS: ENOXAPARIN 40MG/0.4ML SYR SUBCUT SCH (09:00)
[2020-07-01] MEDS: CEFEPIME 1,000 MG in DEXTROSE 5% WATER 50 ML IV SCH ×2 (09:44→21:56)
[2020-07-01] MEDS: METHYLPREDNISOLONE SOD SUCC 40 MG/ML VIAL IV SCH ×2 (09:44→16:54)
[2020-07-01] MEDS: LEVETIRACETAM 500MG TABLET PO SCH ×2 (09:45→21:56)
[2020-07-01] MEDS: FOLIC ACID 1MG TABLET PO SCH (09:45)
[2020-07-01] MEDS: FAMOTIDINE 20MG TABLET PO SCH ×2 (09:45→21:57)
[2020-07-01] MEDS: ASCORBIC ACID 500 MG TABLET PO SCH ×2 (09:45→21:56)
[2020-07-01] MEDS: ASPIRIN 81MG TABLET PO SCH (09:45)
[2020-07-01] MEDS: ZINC SULFATE 220 MG ( 50 ) CAPSULE PO SCH (09:46)
[2020-07-01] MEDS: MIDODRINE HCL 2.5MG TABLET PO SCH ×3 (09:50→17:51)
[2020-07-01] MEDS: LEVOFLOXACIN 500MG TABLET PO SCH (11:01)
[2020-07-01 11:28] LABS: BASOPHILS % 0.5 % (0.0-2.0); EOSINOPHILS % 1.6 % (0.0-5.0); HEMATOCRIT. 28.7 % (42.0-52.0); LYMPHOCYTES % 19.6 % (20.0-50.0); MEAN CORPUSCULAR HEMOGLOBIN 28.7 pg (28.0-32.0); MEAN CORPUSCULAR VOLUME 91.8 fL (80.0-94.0); MONOCYTES % 9.9 % (2.0-8.0); NEUTROPHILS % 68.4 % (40.0-76.0); PLATELET 132 x1000/uL (130-400); RED BLOOD CELL COUNT 3.13 mill/uL (4.7-6.1); RED CELL DISTRIBUTION WIDTH 15.8 % (11.6-14.6)
[2020-07-01 11:32] LABS: CHLORIDE 110 mEq/L (98-107)
[2020-07-01 11:38] LABS: INR 1.3; PROTHROMBIN TIME 13.1 sec (9.6-11.0)
[2020-07-01 13:11] LABS: BG BASE EXCESS 10.2 mmol/L (-2.0-2.0); BG CARBOXYHEMOGLOBIN 0.6 % (0.5-1.5); BG DEOXYHEMOGLOBIN 3.9 % (0.0-5.0); BG FRACTION INSPIRED OXYGEN 60; BG HCO3 ACT 36.7 mmol/L (22.0-26.0); BG METHEMOGLOBIN 0.2 % (0.0-1.5); BG OXYGEN SATURATION 96.1 % (92.0-98.5); BG OXYHEMOGLOBIN 95.3 % (94.0-97.0); BG PCO2 62.2 mmHg (35.0-45.0); BG PH 7.389 (7.350-7.450); BG PO2 82.2 mmHg (75.0-100.0); BG SAMPLE SITE LEFT RADIAL; BG TOTAL HEMOGLOBIN 9.1 g/dL (12.0-18.0); BG VENT MODE NASAL CANNULA
[2020-07-01] MEDS: VANCOMYCIN 1,250 MG in DEXT 5% WATER 250 ML IV SCH (16:54)
[2020-07-01] MEDS: SODIUM CHLORIDE 0.45% 1,000 ML IV SCH (17:31)
[2020-07-02] VITALS (9 sets, daily range): BP systolic 112–132; BP diastolic 54–77
[2020-07-02] MEDS: METHYLPREDNISOLONE SOD SUCC 40 MG/ML VIAL IV SCH ×4 (00:35→23:32)
[2020-07-02] MEDS: PHENYTOIN 100 MG/4 ML UDC NG SCH ×3 (02:00→18:13)
[2020-07-02] MEDS: VANCOMYCIN 1,250 MG in DEXT 5% WATER 250 ML IV SCH (05:15)
[2020-07-02] MEDS: MIDODRINE HCL 2.5MG TABLET PO SCH ×3 (09:00→18:14)
[2020-07-02] MEDS: FAMOTIDINE 20MG TABLET PO SCH (09:00)
[2020-07-02] MEDS: LEVETIRACETAM 500MG TABLET PO SCH ×2 (09:00→20:48)
[2020-07-02] MEDS: ASPIRIN 81MG TABLET PO SCH (09:00)
[2020-07-02] MEDS: FOLIC ACID 1MG TABLET PO SCH (09:00)
[2020-07-02] MEDS: ENOXAPARIN 40MG/0.4ML SYR SUBCUT SCH (09:00)
[2020-07-02] MEDS: ASCORBIC ACID 500 MG TABLET PO SCH ×2 (09:00→20:48)
[2020-07-02] MEDS: ZINC SULFATE 220 MG ( 50 ) CAPSULE PO SCH (09:00)
[2020-07-02] MEDS: CEFEPIME 1,000 MG in DEXTROSE 5% WATER 50 ML IV SCH ×2 (09:17→20:48)
[2020-07-02] MEDS: ACETYLCYSTEINE 100MG/ML 10% VIAL 4ML INH SCH ×2 (10:00→16:43)
[2020-07-02] MEDS: IPRATROPIUM/ALBUTEROL 0.5-3(2.5)MG/3ML NEB HHN SCH ×2 (10:00→16:43)
[2020-07-02] MEDS: LEVOFLOXACIN 500MG TABLET PO SCH (11:00)
[2020-07-02 11:40] LABS: BASOPHILS % 0.2 % (0.0-2.0); EOSINOPHILS % 1.3 % (0.0-5.0); HEMATOCRIT. 27.4 % (42.0-52.0); HEMOGLOBIN. 8.8 g/dL (14.0-18.0); LYMPHOCYTES % 10.9 % (20.0-50.0); MEAN CORPUSCULAR VOLUME 90.2 fL (80.0-94.0); MEAN PLATELET VOLUME 10.2 fl (7.4-10.4); MONOCYTES % 5.6 % (2.0-8.0); PLATELET 152 x1000/uL (130-400); RED BLOOD CELL COUNT 3.04 mill/uL (4.7-6.1)
[2020-07-02 11:47] LABS: INR 1.2; PROTHROMBIN TIME 12.6 sec (9.6-11.0)
[2020-07-02] MEDS: INSULIN LISPRO 100 UNITS/ML SUBCUT SCH ×4 (12:00→23:39)
[2020-07-02] MEDS: BLOOD SUGAR DIAGNOSTIC STRIP TEST SCH ×4 (12:00→23:36)
[2020-07-02 12:03] LABS: CHLORIDE 106 mEq/L (98-107)
[2020-07-02] MEDS ORDERED: MIDAZOLAM HCL 5 MG/5 ML VIAL ONE (14:23)
[2020-07-02] MEDS ORDERED: FENTANYL CITRATE/PF 50MCG/ML 2ML VIAL ONE (14:23)
[2020-07-02] MEDS ORDERED: PROPOFOL 200MG/20ML VIAL IV ONE (14:29)
[2020-07-02 14:58] LABS: BG BASE EXCESS 10.4 mmol/L (-2.0-2.0); BG CARBOXYHEMOGLOBIN 0.2 % (0.5-1.5); BG DEOXYHEMOGLOBIN 6.9 % (0.0-5.0); BG FRACTION INSPIRED OXYGEN 52; BG HCO3 ACT 37.2 mmol/L (22.0-26.0); BG METHEMOGLOBIN 0.3 % (0.0-1.5); BG OXYGEN SATURATION 93.1 % (92.0-98.5); BG OXYHEMOGLOBIN 92.6 % (94.0-97.0); BG PCO2 63.1 mmHg (35.0-45.0); BG PH 7.388 (7.350-7.450); BG PO2 68.1 mmHg (75.0-100.0); BG SAMPLE SITE RIGHT RADIAL; BG TOTAL HEMOGLOBIN 10.1 g/dL (12.0-18.0); BG VENT MODE NASAL CANNULA
[2020-07-02] MEDS ORDERED: MEPERIDINE HCL/PF 25MG/ML CPJ IV PRN (15:15)
[2020-07-02] MEDS ORDERED: ONDANSETRON HCL 4MG/2ML INJ IV PRN (15:15)
[2020-07-02] MEDS ORDERED: LABETALOL 5MG/ML SYR 20 MG/4 ML SYRINGE IV PRN (15:15)
[2020-07-02] MEDS ORDERED: HYDROMORPHONE HCL/PF 2MG/ML CPJ IV PRN (15:15)
[2020-07-02] MEDS: SUCRALFATE 1 G/10 ML UDC PO SCH ×2 (18:13→23:32)
[2020-07-02] MEDS: SODIUM CHLORIDE 0.45% 1,000 ML IV SCH (18:32)
[2020-07-03] VITALS (7 sets, daily range): BP systolic 107–116; BP diastolic 65–76
[2020-07-03] MEDS: PHENYTOIN 100 MG/4 ML UDC NG SCH ×3 (02:06→18:35)
[2020-07-03] MEDS: METOCLOPRAMIDE HCL 10MG/2ML VIAL IV SCH ×4 (04:40→23:37)
[2020-07-03] MEDS: SUCRALFATE 1 G/10 ML UDC PO SCH ×4 (04:40→23:36)
[2020-07-03] MEDS: BLOOD SUGAR DIAGNOSTIC STRIP TEST SCH ×4 (05:02→23:37)
[2020-07-03] MEDS: INSULIN LISPRO 100 UNITS/ML SUBCUT SCH ×4 (05:14→18:00)
[2020-07-03 06:37] LABS: BASOPHILS % 0.6 % (0.0-2.0); EOSINOPHILS % 1.2 % (0.0-5.0); HEMOGLOBIN. 9.7 g/dL (14.0-18.0); LYMPHOCYTES % 15.8 % (20.0-50.0); MEAN CORPUSCULAR HEMOGLOBIN 29.6 pg (28.0-32.0); MEAN CORPUSCULAR VOLUME 91.1 fL (80.0-94.0); MEAN PLATELET VOLUME 10.9 fl (7.4-10.4); MONOCYTES % 5.4 % (2.0-8.0); PLATELET 152 x1000/uL (130-400); RED BLOOD CELL COUNT 3.29 mill/uL (4.7-6.1); RED CELL DISTRIBUTION WIDTH 15.3 % (11.6-14.6)
[2020-07-03 07:12] LABS: CHLORIDE 107 mEq/L (98-107)
[2020-07-03] MEDS: CEFEPIME 1,000 MG in DEXTROSE 5% WATER 50 ML IV SCH ×2 (10:29→20:43)
[2020-07-03] MEDS: METHYLPREDNISOLONE SOD SUCC 40 MG/ML VIAL IV SCH ×3 (10:30→23:37)
[2020-07-03] MEDS: FOLIC ACID 1MG TABLET PO SCH (10:30)
[2020-07-03] MEDS: MIDODRINE HCL 2.5MG TABLET PO SCH ×3 (10:30→18:35)
[2020-07-03] MEDS: ENOXAPARIN 40MG/0.4ML SYR SUBCUT SCH (10:30)
[2020-07-03] MEDS: ZINC SULFATE 220 MG ( 50 ) CAPSULE PO SCH (10:31)
[2020-07-03] MEDS: ASPIRIN 81MG TABLET PO SCH (10:31)
[2020-07-03] MEDS: ASCORBIC ACID 500 MG TABLET PO SCH ×2 (10:31→20:33)
[2020-07-03] MEDS: LEVETIRACETAM 500MG TABLET PO SCH ×2 (10:31→20:33)
[2020-07-03] MEDS: PANTOPRAZOLE SODIUM 40 MG/VIAL IV SCH (10:31)
[2020-07-03] MEDS: IPRATROPIUM/ALBUTEROL 0.5-3(2.5)MG/3ML NEB HHN SCH ×3 (12:07→22:15)
[2020-07-03] MEDS: ACETYLCYSTEINE 100MG/ML 10% VIAL 4ML INH SCH (12:08)
[2020-07-03] MEDS: GUAIFENESIN 200MG/10ML SUGAR FREE UDC NG PRN (14:02)
[2020-07-03] MEDS ORDERED: DOCUSATE SODIUM 100MG CAPSULE PEG SCH (17:00)
[2020-07-03] MEDS: SENNOSIDES/DOCUSATE SOD 8.6/50MG TABLET PEG SCH (20:33)
[2020-07-04] VITALS (9 sets, daily range): BP systolic 96–121; BP diastolic 62–77
[2020-07-04] MEDS: INSULIN LISPRO 100 UNITS/ML SUBCUT SCH ×5 (00:17→23:56)
[2020-07-04] MEDS: ACETYLCYSTEINE 100MG/ML 10% VIAL 4ML INH SCH ×3 (01:15→14:00)
[2020-07-04] MEDS: IPRATROPIUM/ALBUTEROL 0.5-3(2.5)MG/3ML NEB HHN SCH ×6 (01:15→21:05)
[2020-07-04] MEDS: PHENYTOIN 100 MG/4 ML UDC NG SCH ×3 (02:05→17:14)
[2020-07-04] MEDS: METOCLOPRAMIDE HCL 10MG/2ML VIAL IV SCH ×4 (04:47→23:32)
[2020-07-04] MEDS: SUCRALFATE 1 G/10 ML UDC PO SCH ×4 (04:47→23:31)
[2020-07-04] MEDS: BLOOD SUGAR DIAGNOSTIC STRIP TEST SCH ×4 (04:50→23:32)
[2020-07-04] MEDS: SODIUM CHLORIDE 0.45% 1,000 ML IV SCH ×2 (06:16→08:20)
[2020-07-04 06:50] LABS: BASOPHILS % 0.6 % (0.0-2.0); EOSINOPHILS % 1.6 % (0.0-5.0); HEMATOCRIT. 25.8 % (42.0-52.0); HEMOGLOBIN. 8.4 g/dL (14.0-18.0); LYMPHOCYTES % 18.7 % (20.0-50.0); MEAN CORPUSCULAR HEMOGLOBIN 29.3 pg (28.0-32.0); MEAN CORPUSCULAR VOLUME 90.4 fL (80.0-94.0); MONOCYTES % 5.8 % (2.0-8.0); NEUTROPHILS % 73.3 % (40.0-76.0); PLATELET 178 x1000/uL (130-400); RED BLOOD CELL COUNT 2.86 mill/uL (4.7-6.1); RED CELL DISTRIBUTION WIDTH 15.4 % (11.6-14.6)
[2020-07-04 07:00] LABS: CHLORIDE 102 mEq/L (98-107)
[2020-07-04] MEDS: CEFEPIME 1,000 MG in DEXTROSE 5% WATER 50 ML IV SCH ×2 (09:53→21:23)
[2020-07-04] MEDS: PANTOPRAZOLE SODIUM 40 MG/VIAL IV SCH (09:53)
[2020-07-04] MEDS: ENOXAPARIN 40MG/0.4ML SYR SUBCUT SCH (09:54)
[2020-07-04] MEDS: METHYLPREDNISOLONE SOD SUCC 40 MG/ML VIAL IV SCH ×3 (09:54→23:31)
[2020-07-04] MEDS: ASCORBIC ACID 500 MG TABLET PO SCH ×2 (09:54→21:19)
[2020-07-04] MEDS: ZINC SULFATE 220 MG ( 50 ) CAPSULE PO SCH (09:54)
[2020-07-04] MEDS: LEVETIRACETAM 500MG/5ML CUP PEG SCH ×2 (09:55→21:19)
[2020-07-04] MEDS: FOLIC ACID 1MG TABLET PO SCH (09:55)
[2020-07-04] MEDS: DOCUSATE SODIUM SUGAR FREE 100MG/10ML UDC PEG SCH ×2 (09:55→17:13)
[2020-07-04] MEDS: POLYETHYLENE GLYCOL 3350 (17GM) 1 DOSE PACK PEG SCH (09:55)
[2020-07-04] MEDS: ASPIRIN 81MG TABLET PO SCH (09:55)
[2020-07-04] MEDS: MIDODRINE HCL 2.5MG TABLET PO SCH ×3 (09:55→17:14)
[2020-07-04 12:07] LABS: BG BASE EXCESS 9.5 mmol/L (-2.0-2.0); BG CARBOXYHEMOGLOBIN 0.3 % (0.5-1.5); BG DEOXYHEMOGLOBIN 5.2 % (0.0-5.0); BG HCO3 ACT 36.2 mmol/L (22.0-26.0); BG METHEMOGLOBIN 0.3 % (0.0-1.5); BG OXYGEN SATURATION 94.8 % (92.0-98.5); BG OXYHEMOGLOBIN 94.2 % (94.0-97.0); BG PCO2 62.9 mmHg (35.0-45.0); BG PH 7.378 (7.350-7.450); BG PO2 77.7 mmHg (75.0-100.0); BG SAMPLE SITE RIGHT RADIAL; BG TOTAL HEMOGLOBIN 9.4 g/dL (12.0-18.0); BG VENT MODE NASAL CANNULA
[2020-07-04] MEDS: SENNOSIDES/DOCUSATE SOD 8.6/50MG TABLET PEG SCH (21:19)
[2020-07-05] VITALS (7 sets, daily range): BP systolic 106–133; BP diastolic 68–77
[2020-07-05] MEDS: SODIUM CHLORIDE 0.45% 1,000 ML IV SCH ×3 (01:00→17:48)
[2020-07-05] MEDS: PHENYTOIN 100 MG/4 ML UDC NG SCH ×3 (01:24→17:48)
[2020-07-05] MEDS: IPRATROPIUM/ALBUTEROL 0.5-3(2.5)MG/3ML NEB HHN SCH ×4 (02:38→16:19)
[2020-07-05] MEDS: ACETYLCYSTEINE 100MG/ML 10% VIAL 4ML INH SCH (02:38)
[2020-07-05] MEDS: BLOOD SUGAR DIAGNOSTIC STRIP TEST SCH ×4 (06:00→23:50)
[2020-07-05] MEDS: SUCRALFATE 1 G/10 ML UDC PO SCH ×4 (06:33→23:50)
[2020-07-05] MEDS: INSULIN LISPRO 100 UNITS/ML SUBCUT SCH ×4 (06:42→23:51)
[2020-07-05] MEDS: METHYLPREDNISOLONE SOD SUCC 40 MG/ML VIAL IV SCH ×2 (08:00→17:48)
[2020-07-05] MEDS: DOCUSATE SODIUM SUGAR FREE 100MG/10ML UDC PEG SCH ×2 (13:16→17:48)
[2020-07-05] MEDS: ASPIRIN 81MG TABLET PO SCH (13:16)
[2020-07-05] MEDS: POLYETHYLENE GLYCOL 3350 (17GM) 1 DOSE PACK PEG SCH (13:16)
[2020-07-05] MEDS: LEVETIRACETAM 500MG/5ML CUP PEG SCH ×2 (13:16→20:14)
[2020-07-05] MEDS: ZINC SULFATE 220 MG ( 50 ) CAPSULE PO SCH (13:16)
[2020-07-05] MEDS: ENOXAPARIN 40MG/0.4ML SYR SUBCUT SCH (13:17)
[2020-07-05] MEDS: ASCORBIC ACID 500 MG TABLET PO SCH ×2 (13:17→20:14)
[2020-07-05] MEDS: MIDODRINE HCL 2.5MG TABLET PO SCH ×3 (13:18→17:47)
[2020-07-05] MEDS: CEFEPIME 1,000 MG in DEXTROSE 5% WATER 50 ML IV SCH ×2 (13:21→20:14)
[2020-07-05] MEDS: FOLIC ACID 1MG TABLET PO SCH (13:26)
[2020-07-05] MEDS: PANTOPRAZOLE SODIUM 40 MG/VIAL IV SCH (13:26)
[2020-07-05] MEDS: SENNOSIDES/DOCUSATE SOD 8.6/50MG TABLET PEG SCH (20:14)
[2020-07-06] VITALS (13 sets, daily range): BP systolic 117–135; BP diastolic 72–80
[2020-07-06] MEDS: PHENYTOIN 100 MG/4 ML UDC NG SCH ×3 (01:20→17:49)
[2020-07-06] MEDS: INSULIN LISPRO 100 UNITS/ML SUBCUT SCH ×3 (05:06→18:25)
[2020-07-06] MEDS: BLOOD SUGAR DIAGNOSTIC STRIP TEST SCH ×3 (05:06→18:19)
[2020-07-06] MEDS: SUCRALFATE 1 G/10 ML UDC PO SCH ×3 (05:06→18:24)
[2020-07-06] MEDS: DOCUSATE SODIUM SUGAR FREE 100MG/10ML UDC PEG SCH ×2 (09:00→17:00)
[2020-07-06] MEDS: POLYETHYLENE GLYCOL 3350 (17GM) 1 DOSE PACK PEG SCH (09:00)
[2020-07-06] MEDS: IPRATROPIUM/ALBUTEROL 0.5-3(2.5)MG/3ML NEB HHN SCH ×3 (09:07→20:50)
[2020-07-06] MEDS: CEFEPIME 1,000 MG in DEXTROSE 5% WATER 50 ML IV SCH ×2 (10:04→20:41)
[2020-07-06] MEDS: ENOXAPARIN 40MG/0.4ML SYR SUBCUT SCH (10:27)
[2020-07-06] MEDS: ZINC SULFATE 220 MG ( 50 ) CAPSULE PO SCH (10:28)
[2020-07-06] MEDS: FOLIC ACID 1MG TABLET PO SCH (10:28)
[2020-07-06] MEDS: ASPIRIN 81MG TABLET PO SCH (10:28)
[2020-07-06] MEDS: ASCORBIC ACID 500 MG TABLET PO SCH ×2 (10:28→20:42)
[2020-07-06] MEDS: LEVETIRACETAM 500MG/5ML CUP PEG SCH ×2 (10:28→20:41)
[2020-07-06] MEDS: MIDODRINE HCL 2.5MG TABLET PO SCH ×3 (10:28→17:50)
[2020-07-06] MEDS: METHYLPREDNISOLONE SOD SUCC 40 MG/ML VIAL IV SCH ×2 (10:29→20:41)
[2020-07-06] MEDS: PANTOPRAZOLE SODIUM 40 MG/VIAL IV SCH (10:29)
[2020-07-06] MEDS: SENNOSIDES/DOCUSATE SOD 8.6/50MG TABLET PEG SCH (20:42)
[2020-07-07] MEDS: IPRATROPIUM/ALBUTEROL 0.5-3(2.5)MG/3ML NEB HHN SCH ×4 (00:30→21:12)
[2020-07-07] MEDS: SUCRALFATE 1 G/10 ML UDC PO SCH ×4 (00:41→18:09)
[2020-07-07] MEDS: BLOOD SUGAR DIAGNOSTIC STRIP TEST SCH ×4 (00:42→18:29)
[2020-07-07] MEDS: INSULIN LISPRO 100 UNITS/ML SUBCUT SCH ×4 (00:42→18:29)
[2020-07-07] MEDS: PHENYTOIN 100 MG/4 ML UDC NG SCH ×3 (02:18→18:09)
[2020-07-07 04:00] VITALS: BP 109/71
[2020-07-07 08:00] VITALS: BP 126/84
[2020-07-07] MEDS ORDERED: METHYLPREDNISOLONE SOD SUCC 40 MG/ML VIAL IV SCH (09:00)
[2020-07-07] MEDS: CEFEPIME 1,000 MG in DEXTROSE 5% WATER 50 ML IV SCH ×2 (09:45→20:52)
[2020-07-07] MEDS: ZINC SULFATE 220 MG ( 50 ) CAPSULE PO SCH (09:45)
[2020-07-07] MEDS: ENOXAPARIN 40MG/0.4ML SYR SUBCUT SCH (09:45)
[2020-07-07] MEDS: DOCUSATE SODIUM SUGAR FREE 100MG/10ML UDC PEG SCH ×2 (09:46→17:00)
[2020-07-07] MEDS: PANTOPRAZOLE SODIUM 40 MG/VIAL IV SCH (09:46)
[2020-07-07] MEDS: LEVETIRACETAM 500MG/5ML CUP PEG SCH ×2 (09:46→20:52)
[2020-07-07] MEDS: FOLIC ACID 1MG TABLET PO SCH (09:47)
[2020-07-07] MEDS: MIDODRINE HCL 2.5MG TABLET PO SCH ×3 (09:47→18:29)
[2020-07-07] MEDS: POLYETHYLENE GLYCOL 3350 (17GM) 1 DOSE PACK PEG SCH (09:47)
[2020-07-07] MEDS: ASCORBIC ACID 500 MG TABLET PO SCH ×2 (09:47→20:52)
[2020-07-07] MEDS: ASPIRIN 81MG TABLET PO SCH (09:47)
[2020-07-07 12:00] VITALS: BP 105/69
[2020-07-07] MEDS: SODIUM CHLORIDE 0.45% 1,000 ML IV SCH (15:13)
[2020-07-07 16:00] VITALS: BP 129/84
[2020-07-07] MEDS: BACITRACIN 15GM TUBE TOP SCH (18:27)
[2020-07-07 20:00] VITALS: BP 127/80
[2020-07-07] MEDS: SENNOSIDES/DOCUSATE SOD 8.6/50MG TABLET PEG SCH (20:52)
[2020-07-07 22:00] VITALS: BP 128/79
[2020-07-08] VITALS (7 sets, daily range): BP systolic 113–125; BP diastolic 64–85
[2020-07-08] MEDS: SODIUM CHLORIDE 0.45% 1,000 ML IV SCH ×2 (00:27→09:40)
[2020-07-08] MEDS: BLOOD SUGAR DIAGNOSTIC STRIP TEST SCH ×4 (00:28→18:00)
[2020-07-08] MEDS: SUCRALFATE 1 G/10 ML UDC PO SCH ×4 (00:28→18:23)
[2020-07-08] MEDS: INSULIN LISPRO 100 UNITS/ML SUBCUT SCH ×4 (00:40→18:24)
[2020-07-08] MEDS: PHENYTOIN 100 MG/4 ML UDC NG SCH ×3 (02:38→18:23)
[2020-07-08] MEDS: IPRATROPIUM/ALBUTEROL 0.5-3(2.5)MG/3ML NEB HHN SCH ×4 (07:38→22:53)
[2020-07-08] MEDS: BACITRACIN 15GM TUBE TOP SCH (09:00)
[2020-07-08] MEDS: DOCUSATE SODIUM SUGAR FREE 100MG/10ML UDC PEG SCH ×2 (09:00→18:27)
[2020-07-08] MEDS: POLYETHYLENE GLYCOL 3350 (17GM) 1 DOSE PACK PEG SCH (09:00)
[2020-07-08] MEDS ORDERED: METHYLPREDNISOLONE SOD SUCC 40 MG/ML VIAL IV SCH (09:00)
[2020-07-08] MEDS: ENOXAPARIN 40MG/0.4ML SYR SUBCUT SCH (09:37)
[2020-07-08] MEDS: LEVETIRACETAM 500MG/5ML CUP PEG SCH ×2 (09:37→22:36)
[2020-07-08] MEDS: PANTOPRAZOLE SODIUM 40 MG/VIAL IV SCH (09:38)
[2020-07-08] MEDS: ASCORBIC ACID 500 MG TABLET PO SCH ×2 (09:38→22:36)
[2020-07-08] MEDS: ASPIRIN 81MG TABLET PO SCH (09:38)
[2020-07-08] MEDS: MIDODRINE HCL 2.5MG TABLET PO SCH ×3 (09:38→17:00)
[2020-07-08] MEDS: ZINC SULFATE 220 MG ( 50 ) CAPSULE PO SCH (09:38)
[2020-07-08] MEDS: FOLIC ACID 1MG TABLET PO SCH (09:46)
[2020-07-08] MEDS: SENNOSIDES/DOCUSATE SOD 8.6/50MG TABLET PEG SCH (22:36)
[2020-07-09] MEDS: PHENYTOIN 100 MG/4 ML UDC NG SCH ×3 (02:20→16:54)
[2020-07-09] MEDS: SODIUM CHLORIDE 0.45% 1,000 ML IV SCH ×2 (05:00→23:58)
[2020-07-09] MEDS: BLOOD SUGAR DIAGNOSTIC STRIP TEST SCH ×4 (06:51→16:55)
[2020-07-09] MEDS: SUCRALFATE 1 G/10 ML UDC PO SCH ×5 (06:51→23:58)
[2020-07-09] MEDS: INSULIN LISPRO 100 UNITS/ML SUBCUT SCH ×4 (06:56→16:55)
[2020-07-09 08:00] VITALS: BP 136/81
[2020-07-09] MEDS: IPRATROPIUM/ALBUTEROL 0.5-3(2.5)MG/3ML NEB HHN SCH ×4 (08:54→22:16)
[2020-07-09] MEDS: METHYLPREDNISOLONE SOD SUCC 40 MG/ML VIAL IV SCH (09:01)
[2020-07-09] MEDS: LEVETIRACETAM 500MG/5ML CUP PEG SCH ×2 (09:01→23:57)
[2020-07-09] MEDS: DOCUSATE SODIUM SUGAR FREE 100MG/10ML UDC PEG SCH ×2 (09:01→16:54)
[2020-07-09] MEDS: POLYETHYLENE GLYCOL 3350 (17GM) 1 DOSE PACK PEG SCH (09:02)
[2020-07-09] MEDS: FOLIC ACID 1MG TABLET PO SCH (09:02)
[2020-07-09] MEDS: ASCORBIC ACID 500 MG TABLET PO SCH ×2 (09:02→23:58)
[2020-07-09] MEDS: LANSOPRAZOLE 30MG DR CAPSULE GT SCH (09:02)
[2020-07-09] MEDS: ENOXAPARIN 40MG/0.4ML SYR SUBCUT SCH (09:02)
[2020-07-09] MEDS: ZINC SULFATE 220 MG ( 50 ) CAPSULE PO SCH (09:02)
[2020-07-09] MEDS: ASPIRIN 81MG TABLET PO SCH (09:03)
[2020-07-09] MEDS: MIDODRINE HCL 2.5MG TABLET PO SCH ×3 (09:04→16:55)
[2020-07-09] MEDS: BACITRACIN 15GM TUBE TOP SCH (09:04)
[2020-07-09 12:00] VITALS: BP 124/84
[2020-07-09 16:00] VITALS: BP 128/82
[2020-07-09 20:00] VITALS: BP 140/85
[2020-07-09] MEDS: SENNOSIDES/DOCUSATE SOD 8.6/50MG TABLET PEG SCH (23:58)
[2020-07-10] VITALS: BP 140/86
[2020-07-10] MEDS: PHENYTOIN 100 MG/4 ML UDC NG SCH ×3 (02:41→16:48)
[2020-07-10] MEDS: IPRATROPIUM/ALBUTEROL 0.5-3(2.5)MG/3ML NEB HHN SCH ×5 (03:30→21:29)
[2020-07-10 04:00] VITALS: BP 120/74
[2020-07-10] MEDS: SUCRALFATE 1 G/10 ML UDC PO SCH ×4 (05:05→22:03)
[2020-07-10] MEDS: BLOOD SUGAR DIAGNOSTIC STRIP TEST SCH ×5 (06:00→23:04)
[2020-07-10] MEDS: INSULIN LISPRO 100 UNITS/ML SUBCUT SCH ×5 (06:00→23:04)
[2020-07-10 08:00] VITALS: BP 115/68
[2020-07-10] MEDS: DOCUSATE SODIUM SUGAR FREE 100MG/10ML UDC PEG SCH ×2 (09:00→16:21)
[2020-07-10] MEDS: POLYETHYLENE GLYCOL 3350 (17GM) 1 DOSE PACK PEG SCH (09:00)
[2020-07-10] MEDS: ENOXAPARIN 40MG/0.4ML SYR SUBCUT SCH (09:00)
[2020-07-10] MEDS: LEVETIRACETAM 500MG/5ML CUP PEG SCH ×2 (09:09→22:02)
[2020-07-10] MEDS: METHYLPREDNISOLONE SOD SUCC 40 MG/ML VIAL IV SCH (09:09)
[2020-07-10] MEDS: ASPIRIN 81MG TABLET PO SCH (09:10)
[2020-07-10] MEDS: ZINC SULFATE 220 MG ( 50 ) CAPSULE PO SCH (09:10)
[2020-07-10] MEDS: LANSOPRAZOLE 30MG DR CAPSULE GT SCH (09:10)
[2020-07-10] MEDS: ASCORBIC ACID 500 MG TABLET PO SCH ×2 (09:10→22:03)
[2020-07-10] MEDS: MIDODRINE HCL 2.5MG TABLET PO SCH ×3 (09:10→16:48)
[2020-07-10] MEDS: FOLIC ACID 1MG TABLET PO SCH (09:10)
[2020-07-10] MEDS: BACITRACIN 15GM TUBE TOP SCH (09:12)
[2020-07-10 12:00] VITALS: BP 126/72
[2020-07-10] MEDS: SODIUM CHLORIDE 0.45% 1,000 ML IV SCH ×2 (14:20→22:03)
[2020-07-10 16:00] VITALS: BP 124/70
[2020-07-10 20:00] VITALS: BP 138/82
[2020-07-10] MEDS: SENNOSIDES/DOCUSATE SOD 8.6/50MG TABLET PEG SCH (22:03)
[2020-07-11] VITALS (8 sets, daily range): BP systolic 104–154; BP diastolic 66–86
[2020-07-11] MEDS: IPRATROPIUM/ALBUTEROL 0.5-3(2.5)MG/3ML NEB HHN SCH ×2 (00:28→04:36)
[2020-07-11] MEDS: PHENYTOIN 100 MG/4 ML UDC NG SCH ×3 (02:10→17:35)
[2020-07-11] MEDS: BLOOD SUGAR DIAGNOSTIC STRIP TEST SCH ×3 (05:17→18:00)
[2020-07-11] MEDS: INSULIN LISPRO 100 UNITS/ML SUBCUT SCH ×3 (05:18→18:00)
[2020-07-11] MEDS: SUCRALFATE 1 G/10 ML UDC PO SCH ×2 (05:26→17:35)
[2020-07-11] MEDS: DOCUSATE SODIUM SUGAR FREE 100MG/10ML UDC PEG SCH ×2 (09:00→17:34)
[2020-07-11] MEDS: POLYETHYLENE GLYCOL 3350 (17GM) 1 DOSE PACK PEG SCH (09:00)
[2020-07-11] MEDS: BACITRACIN 15GM TUBE TOP SCH (09:00)
[2020-07-11] MEDS: FOLIC ACID 1MG TABLET PO SCH (10:11)
[2020-07-11] MEDS: ZINC SULFATE 220 MG ( 50 ) CAPSULE PO SCH (10:11)
[2020-07-11] MEDS: ASCORBIC ACID 500 MG TABLET PO SCH ×2 (10:11→22:09)
[2020-07-11] MEDS: LEVETIRACETAM 500MG/5ML CUP PEG SCH ×2 (10:11→22:09)
[2020-07-11] MEDS: MIDODRINE HCL 2.5MG TABLET PO SCH ×2 (10:11→17:35)
[2020-07-11] MEDS: ASPIRIN 81MG TABLET PO SCH (10:11)
[2020-07-11] MEDS: LANSOPRAZOLE 30MG DR CAPSULE GT SCH (10:12)
[2020-07-11] MEDS: ENOXAPARIN 40MG/0.4ML SYR SUBCUT SCH (10:12)
[2020-07-11] MEDS: SENNOSIDES/DOCUSATE SOD 8.6/50MG TABLET PEG SCH (22:09)
[2020-07-12] VITALS: BP 143/92
[2020-07-12] MEDS: SODIUM CHLORIDE 0.45% 1,000 ML IV SCH ×2 (00:04→17:17)
[2020-07-12] MEDS: BLOOD SUGAR DIAGNOSTIC STRIP TEST SCH ×4 (00:05→18:00)
[2020-07-12] MEDS: SUCRALFATE 1 G/10 ML UDC PO SCH ×4 (00:16→17:17)
[2020-07-12] MEDS: PHENYTOIN 100 MG/4 ML UDC NG SCH ×3 (02:20→17:17)
[2020-07-12] MEDS: INSULIN LISPRO 100 UNITS/ML SUBCUT SCH ×4 (06:00→17:36)
[2020-07-12] MEDS: LANSOPRAZOLE 30MG DR CAPSULE GT SCH (07:20)
[2020-07-12 08:00] VITALS: BP 135/68
[2020-07-12] MEDS: MIDODRINE HCL 2.5MG TABLET PO SCH ×3 (09:00→17:00)
[2020-07-12] MEDS: BACITRACIN 15GM TUBE TOP SCH (09:00)
[2020-07-12] MEDS: ASPIRIN 81MG TABLET PO SCH (09:47)
[2020-07-12] MEDS: ZINC SULFATE 220 MG ( 50 ) CAPSULE PO SCH (09:47)
[2020-07-12] MEDS: DOCUSATE SODIUM SUGAR FREE 100MG/10ML UDC PEG SCH ×2 (09:47→17:17)
[2020-07-12] MEDS: FOLIC ACID 1MG TABLET PO SCH (09:47)
[2020-07-12] MEDS: POLYETHYLENE GLYCOL 3350 (17GM) 1 DOSE PACK PEG SCH (09:47)
[2020-07-12] MEDS: LEVETIRACETAM 500MG/5ML CUP PEG SCH ×2 (09:47→20:44)
[2020-07-12] MEDS: ASCORBIC ACID 500 MG TABLET PO SCH ×2 (09:47→20:44)
[2020-07-12] MEDS: ENOXAPARIN 40MG/0.4ML SYR SUBCUT SCH (09:48)
[2020-07-12 12:00] VITALS: BP 137/83
[2020-07-12 16:00] VITALS: BP 164/77
[2020-07-12 17:30] VITALS: BP 136/74
[2020-07-12 20:00] VITALS: BP 149/70
[2020-07-12] MEDS: SENNOSIDES/DOCUSATE SOD 8.6/50MG TABLET PEG SCH (20:44)
[2020-07-13] VITALS: BP 136/72
[2020-07-13] MEDS: SUCRALFATE 1 G/10 ML UDC PO SCH ×5 (00:09→23:55)
[2020-07-13] MEDS: BLOOD SUGAR DIAGNOSTIC STRIP TEST SCH ×4 (00:32→23:55)
[2020-07-13] MEDS: PHENYTOIN 100 MG/4 ML UDC NG SCH ×3 (02:05→17:58)
[2020-07-13 04:00] VITALS: BP_SYST 124; BP_SYST 126; BP_DIAS 71
[2020-07-13 08:00] VITALS: BP 138/76
[2020-07-13] MEDS: LANSOPRAZOLE 30MG DR CAPSULE GT SCH (08:07)
[2020-07-13] MEDS: ASCORBIC ACID 500 MG TABLET PO SCH ×2 (08:08→20:51)
[2020-07-13] MEDS: BACITRACIN 15GM TUBE TOP SCH (08:08)
[2020-07-13] MEDS: DOCUSATE SODIUM SUGAR FREE 100MG/10ML UDC PEG SCH ×2 (08:08→17:58)
[2020-07-13] MEDS: ENOXAPARIN 40MG/0.4ML SYR SUBCUT SCH (08:08)
[2020-07-13] MEDS: LEVETIRACETAM 500MG/5ML CUP PEG SCH ×2 (08:08→20:51)
[2020-07-13] MEDS: FOLIC ACID 1MG TABLET PO SCH (08:08)
[2020-07-13] MEDS: ZINC SULFATE 220 MG ( 50 ) CAPSULE PO SCH (08:08)
[2020-07-13] MEDS: ASPIRIN 81MG TABLET PO SCH (08:09)
[2020-07-13] MEDS: POLYETHYLENE GLYCOL 3350 (17GM) 1 DOSE PACK PEG SCH (08:11)
[2020-07-13] MEDS: SODIUM CHLORIDE 0.45% 1,000 ML IV SCH (08:12)
[2020-07-13] MEDS: MIDODRINE HCL 2.5MG TABLET PO SCH ×3 (09:00→17:00)
[2020-07-13 12:00] VITALS: BP 129/78
[2020-07-13] MEDS: INSULIN LISPRO 100 UNITS/ML SUBCUT SCH ×4 (12:00→23:55)
[2020-07-13 16:00] VITALS: BP 139/67
[2020-07-13 20:00] VITALS: BP 151/67
[2020-07-13] MEDS: SENNOSIDES/DOCUSATE SOD 8.6/50MG TABLET PEG SCH (20:51)
[2020-07-14] VITALS: BP 150/84
[2020-07-14] MEDS: SODIUM CHLORIDE 0.45% 1,000 ML IV SCH ×2 (01:37→17:24)
[2020-07-14] MEDS: PHENYTOIN 100 MG/4 ML UDC NG SCH ×3 (02:31→17:23)
[2020-07-14 04:00] VITALS: BP 143/82
[2020-07-14] MEDS: SUCRALFATE 1 G/10 ML UDC PO SCH ×3 (05:43→17:23)
[2020-07-14] MEDS: INSULIN LISPRO 100 UNITS/ML SUBCUT SCH ×3 (06:00→17:24)
[2020-07-14] MEDS: BLOOD SUGAR DIAGNOSTIC STRIP TEST SCH ×3 (06:17→17:24)
[2020-07-14 08:00] VITALS: BP 129/79
[2020-07-14] MEDS: ASPIRIN 81MG TABLET PO SCH (09:43)
[2020-07-14] MEDS: DOCUSATE SODIUM SUGAR FREE 100MG/10ML UDC PEG SCH ×2 (09:43→17:23)
[2020-07-14] MEDS: FOLIC ACID 1MG TABLET PO SCH (09:43)
[2020-07-14] MEDS: LEVETIRACETAM 500MG/5ML CUP PEG SCH ×2 (09:43→20:55)
[2020-07-14] MEDS: ZINC SULFATE 220 MG ( 50 ) CAPSULE PO SCH (09:44)
[2020-07-14] MEDS: MIDODRINE HCL 2.5MG TABLET PO SCH ×3 (09:44→17:00)
[2020-07-14] MEDS: ASCORBIC ACID 500 MG TABLET PO SCH ×2 (09:44→20:55)
[2020-07-14] MEDS: LANSOPRAZOLE 30MG DR CAPSULE GT SCH (09:44)
[2020-07-14] MEDS: ENOXAPARIN 40MG/0.4ML SYR SUBCUT SCH (09:45)
[2020-07-14] MEDS: POLYETHYLENE GLYCOL 3350 (17GM) 1 DOSE PACK PEG SCH (09:45)
[2020-07-14] MEDS: BACITRACIN 15GM TUBE TOP SCH (09:56)
[2020-07-14 12:00] VITALS: BP 132/77
[2020-07-14 16:00] VITALS: BP 134/74
[2020-07-14 20:00] VITALS: BP 125/73
[2020-07-14] MEDS: SENNOSIDES/DOCUSATE SOD 8.6/50MG TABLET PEG SCH (20:55)
[2020-07-15] VITALS: BP 117/76
[2020-07-15] MEDS: SUCRALFATE 1 G/10 ML UDC PO SCH ×4 (00:31→17:25)
[2020-07-15] MEDS: BLOOD SUGAR DIAGNOSTIC STRIP TEST SCH ×4 (00:31→18:01)
[2020-07-15] MEDS: PHENYTOIN 100 MG/4 ML UDC NG SCH ×3 (01:23→17:25)
[2020-07-15 04:00] VITALS: BP 142/82
[2020-07-15] MEDS: INSULIN LISPRO 100 UNITS/ML SUBCUT SCH ×4 (05:55→18:00)
[2020-07-15 07:55] LABS: HEMATOCRIT 29.3 % (42.0-52.0); HEMOGLOBIN 9.5 g/dL (14.0-18.0); MEAN CORPUSCULAR HEMOGLOBIN 29.4 pg (28.0-32.0); MEAN CORPUSCULAR VOLUME 90.8 fL (80.0-94.0); PLATELET 313 x1000/uL (130-400); RED BLOOD CELL COUNT 3.23 mill/uL (4.7-6.1); RED CELL DISTRIBUTION WIDTH 16.5 % (11.6-14.6)
[2020-07-15 08:00] VITALS: BP 124/71
[2020-07-15] MEDS: ASPIRIN 81MG TABLET PO SCH (09:11)
[2020-07-15] MEDS: ZINC SULFATE 220 MG ( 50 ) CAPSULE PO SCH (09:11)
[2020-07-15] MEDS: DOCUSATE SODIUM SUGAR FREE 100MG/10ML UDC PEG SCH ×2 (09:11→17:25)
[2020-07-15] MEDS: LEVETIRACETAM 500MG/5ML CUP PEG SCH ×2 (09:11→20:33)
[2020-07-15] MEDS: FOLIC ACID 1MG TABLET PO SCH (09:11)
[2020-07-15] MEDS: ASCORBIC ACID 500 MG TABLET PO SCH ×2 (09:12→20:33)
[2020-07-15] MEDS: ENOXAPARIN 40MG/0.4ML SYR SUBCUT SCH (09:12)
[2020-07-15] MEDS: POLYETHYLENE GLYCOL 3350 (17GM) 1 DOSE PACK PEG SCH (09:13)
[2020-07-15] MEDS: MIDODRINE HCL 2.5MG TABLET PO SCH ×3 (09:14→17:25)
[2020-07-15] MEDS: BACITRACIN 15GM TUBE TOP SCH (09:18)
[2020-07-15] MEDS: LANSOPRAZOLE 30MG DR CAPSULE GT SCH (09:18)
[2020-07-15 09:38] LABS: CHLORIDE 103 mEq/L (98-107)
[2020-07-15] MEDS: SODIUM CHLORIDE 0.45% 1,000 ML IV SCH (10:04)
[2020-07-15 12:00] VITALS: BP 134/81
[2020-07-15 16:00] VITALS: BP 128/74
[2020-07-15 20:00] VITALS: BP 137/83
[2020-07-15] MEDS: SENNOSIDES/DOCUSATE SOD 8.6/50MG TABLET PEG SCH (20:34)
[2020-07-16] VITALS: BP 144/84
[2020-07-16] MEDS: BLOOD SUGAR DIAGNOSTIC STRIP TEST SCH ×3 (00:41→17:54)
[2020-07-16] MEDS: SUCRALFATE 1 G/10 ML UDC PO SCH ×3 (00:42→18:13)
[2020-07-16] MEDS: PHENYTOIN 100 MG/4 ML UDC NG SCH ×3 (01:03→18:13)
[2020-07-16] MEDS: SODIUM CHLORIDE 0.45% 1,000 ML IV SCH ×2 (03:42→22:30)
[2020-07-16 04:00] VITALS: BP 134/83
[2020-07-16 08:00] VITALS: BP 161/84
[2020-07-16] MEDS: DOCUSATE SODIUM SUGAR FREE 100MG/10ML UDC PEG SCH ×2 (10:10→17:00)
[2020-07-16] MEDS: LEVETIRACETAM 500MG/5ML CUP PEG SCH ×2 (10:10→22:29)
[2020-07-16] MEDS: ASPIRIN 81MG TABLET PO SCH (10:10)
[2020-07-16] MEDS: LANSOPRAZOLE 30MG DR CAPSULE GT SCH (10:10)
[2020-07-16] MEDS: ZINC SULFATE 220 MG ( 50 ) CAPSULE PO SCH (10:10)
[2020-07-16] MEDS: MIDODRINE HCL 2.5MG TABLET PO SCH ×3 (10:11→17:00)
[2020-07-16] MEDS: FOLIC ACID 1MG TABLET PO SCH (10:12)
[2020-07-16] MEDS: ASCORBIC ACID 500 MG TABLET PO SCH (10:12)
[2020-07-16] MEDS: ENOXAPARIN 40MG/0.4ML SYR SUBCUT SCH (10:13)
[2020-07-16] MEDS: POLYETHYLENE GLYCOL 3350 (17GM) 1 DOSE PACK PEG SCH (10:13)
[2020-07-16] MEDS: BACITRACIN 15GM TUBE TOP SCH (10:13)
[2020-07-16 12:00] VITALS: BP 139/77
[2020-07-16] MEDS: INSULIN LISPRO 100 UNITS/ML SUBCUT SCH ×3 (12:00→17:58)
[2020-07-16 16:00] VITALS: BP 133/83
[2020-07-16 20:00] VITALS: BP 148/84
[2020-07-16] MEDS: SENNOSIDES/DOCUSATE SOD 8.6/50MG TABLET PEG SCH (22:30)
[2020-07-17] VITALS: BP 136/79
[2020-07-17] MEDS: SUCRALFATE 1 G/10 ML UDC PO SCH ×4 (01:48→18:35)
[2020-07-17] MEDS: PHENYTOIN 100 MG/4 ML UDC NG SCH ×3 (01:48→18:35)
[2020-07-17 04:00] VITALS: BP 159/82
[2020-07-17] MEDS: BLOOD SUGAR DIAGNOSTIC STRIP TEST SCH ×4 (06:00→18:35)
[2020-07-17] MEDS: INSULIN LISPRO 100 UNITS/ML SUBCUT SCH ×4 (06:00→18:00)
[2020-07-17] MEDS: LANSOPRAZOLE 30MG DR CAPSULE GT SCH (07:23)
[2020-07-17 08:00] VITALS: BP 149/78
[2020-07-17] MEDS: MIDODRINE HCL 2.5MG TABLET PO SCH ×3 (09:00→17:00)
[2020-07-17] MEDS: ASPIRIN 81MG TABLET PO SCH (09:18)
[2020-07-17] MEDS: FOLIC ACID 1MG TABLET PO SCH (09:18)
[2020-07-17] MEDS: POLYETHYLENE GLYCOL 3350 (17GM) 1 DOSE PACK PEG SCH (09:24)
[2020-07-17] MEDS: DOCUSATE SODIUM SUGAR FREE 100MG/10ML UDC PEG SCH ×2 (09:24→18:37)
[2020-07-17] MEDS: BACITRACIN 15GM TUBE TOP SCH (09:24)
[2020-07-17] MEDS: ENOXAPARIN 40MG/0.4ML SYR SUBCUT SCH (09:24)
[2020-07-17] MEDS: LEVETIRACETAM 500MG/5ML CUP PEG SCH ×2 (09:24→20:39)
[2020-07-17 12:00] VITALS: BP 151/87
[2020-07-17] MEDS: SODIUM CHLORIDE 0.45% 1,000 ML IV SCH (12:41)
[2020-07-17 16:00] VITALS: BP 142/92
[2020-07-17 20:00] VITALS: BP 143/82
[2020-07-17] MEDS: SENNOSIDES/DOCUSATE SOD 8.6/50MG TABLET PEG SCH (20:39)
[2020-07-18] VITALS: BP 162/90
[2020-07-18] MEDS: PHENYTOIN 100 MG/4 ML UDC NG SCH ×3 (02:13→17:48)
[2020-07-18 04:00] VITALS: BP 116/63
[2020-07-18] MEDS: INSULIN LISPRO 100 UNITS/ML SUBCUT SCH ×4 (06:00→17:48)
[2020-07-18] MEDS: SODIUM CHLORIDE 0.45% 1,000 ML IV SCH (06:26)
[2020-07-18] MEDS: BLOOD SUGAR DIAGNOSTIC STRIP TEST SCH ×4 (06:26→17:48)
[2020-07-18] MEDS: SUCRALFATE 1 G/10 ML UDC PO SCH ×4 (06:26→17:48)
[2020-07-18 08:00] VITALS: BP 140/82
[2020-07-18] MEDS ORDERED: IPRATROPIUM/ALBUTEROL 0.5-3(2.5)MG/3ML NEB HHN SCH (09:00)
[2020-07-18] MEDS: MIDODRINE HCL 2.5MG TABLET PO SCH (09:00)
[2020-07-18] MEDS: LEVETIRACETAM 500MG/5ML CUP PEG SCH ×2 (09:47→21:59)
[2020-07-18] MEDS: DOCUSATE SODIUM SUGAR FREE 100MG/10ML UDC PEG SCH ×2 (09:47→17:48)
[2020-07-18] MEDS: BACITRACIN 15GM TUBE TOP SCH (09:47)
[2020-07-18] MEDS: ENOXAPARIN 40MG/0.4ML SYR SUBCUT SCH (09:49)
[2020-07-18] MEDS: FOLIC ACID 1MG TABLET PO SCH (09:50)
[2020-07-18] MEDS: POLYETHYLENE GLYCOL 3350 (17GM) 1 DOSE PACK PEG SCH (09:50)
[2020-07-18] MEDS: ASPIRIN 81MG TABLET PO SCH (09:50)
[2020-07-18] MEDS ORDERED: FUROSEMIDE 40MG TABLET PO NR (10:30)
[2020-07-18 12:00] VITALS: BP 149/84
[2020-07-18 16:00] VITALS: BP 147/97
[2020-07-18] MEDS: LANSOPRAZOLE 30MG DR CAPSULE GT SCH (17:48)
[2020-07-18 20:00] VITALS: BP 139/82
[2020-07-18] MEDS: SENNOSIDES/DOCUSATE SOD 8.6/50MG TABLET PEG SCH (21:59)
[2020-07-19] VITALS: BP 137/61
[2020-07-19] MEDS: SUCRALFATE 1 G/10 ML UDC PO SCH ×4 (01:24→17:28)
[2020-07-19] MEDS: PHENYTOIN 100 MG/4 ML UDC NG SCH (01:40)
[2020-07-19 04:00] VITALS: BP 142/83
[2020-07-19] MEDS: INSULIN LISPRO 100 UNITS/ML SUBCUT SCH ×4 (06:00→17:28)
[2020-07-19] MEDS: BLOOD SUGAR DIAGNOSTIC STRIP TEST SCH ×4 (06:30→17:28)
[2020-07-19] MEDS: LANSOPRAZOLE 30MG DR CAPSULE GT SCH (06:47)
[2020-07-19 08:00] VITALS: BP 118/55
[2020-07-19] MEDS: BACITRACIN 15GM TUBE TOP SCH (09:36)
[2020-07-19] MEDS: ENOXAPARIN 40MG/0.4ML SYR SUBCUT SCH (09:37)
[2020-07-19] MEDS: FOLIC ACID 1MG TABLET PO SCH (09:37)
[2020-07-19] MEDS: ASPIRIN 81MG TABLET PO SCH (09:37)
[2020-07-19] MEDS: DOCUSATE SODIUM SUGAR FREE 100MG/10ML UDC PEG SCH ×2 (09:37→17:28)
[2020-07-19] MEDS: LEVETIRACETAM 500MG/5ML CUP PEG SCH ×2 (09:37→21:25)
[2020-07-19] MEDS: POLYETHYLENE GLYCOL 3350 (17GM) 1 DOSE PACK PEG SCH (09:37)
[2020-07-19 20:00] VITALS: BP 141/86
[2020-07-19] MEDS: SENNOSIDES/DOCUSATE SOD 8.6/50MG TABLET PEG SCH (21:25)
[2020-07-20] VITALS (7 sets, daily range): BP systolic 144–170; BP diastolic 68–94
[2020-07-20] MEDS: BLOOD SUGAR DIAGNOSTIC STRIP TEST SCH ×4 (00:32→17:31)
[2020-07-20] MEDS: SUCRALFATE 1 G/10 ML UDC PO SCH ×4 (00:32→17:00)
[2020-07-20] MEDS: INSULIN LISPRO 100 UNITS/ML SUBCUT SCH ×4 (06:00→17:32)
[2020-07-20] MEDS: LANSOPRAZOLE 30MG DR CAPSULE GT SCH (06:26)
[2020-07-20] MEDS: DOCUSATE SODIUM SUGAR FREE 100MG/10ML UDC PEG SCH ×2 (09:13→17:00)
[2020-07-20] MEDS: LEVETIRACETAM 500MG/5ML CUP PEG SCH ×2 (09:13→21:57)
[2020-07-20] MEDS: ASPIRIN 81MG TABLET PO SCH (09:14)
[2020-07-20] MEDS: ENOXAPARIN 40MG/0.4ML SYR SUBCUT SCH (09:14)
[2020-07-20] MEDS: POLYETHYLENE GLYCOL 3350 (17GM) 1 DOSE PACK PEG SCH (09:14)
[2020-07-20] MEDS: FOLIC ACID 1MG TABLET PO SCH (09:14)
[2020-07-20] MEDS: BACITRACIN 15GM TUBE TOP SCH (11:54)
[2020-07-20] MEDS: SENNOSIDES/DOCUSATE SOD 8.6/50MG TABLET PEG SCH (21:57)
[2020-07-21] VITALS: BP 125/64
[2020-07-21] MEDS: SUCRALFATE 1 G/10 ML UDC PO SCH ×4 (00:35→17:32)
[2020-07-21] MEDS: BLOOD SUGAR DIAGNOSTIC STRIP TEST SCH ×4 (00:35→17:47)
[2020-07-21 04:00] VITALS: BP 149/80
[2020-07-21] MEDS: INSULIN LISPRO 100 UNITS/ML SUBCUT SCH ×4 (06:00→17:47)
[2020-07-21] MEDS: LANSOPRAZOLE 30MG DR CAPSULE GT SCH (06:41)
[2020-07-21 07:51] LABS: BASOPHILS % 0.7 % (0.0-2.0); EOSINOPHILS % 5.2 % (0.0-5.0); HEMATOCRIT. 29.8 % (42.0-52.0); HEMOGLOBIN. 9.8 g/dL (14.0-18.0); LYMPHOCYTES % 20.3 % (20.0-50.0); MEAN CORPUSCULAR HEMOGLOBIN 29.6 pg (28.0-32.0); MEAN CORPUSCULAR VOLUME 89.9 fL (80.0-94.0); MEAN PLATELET VOLUME 9.9 fl (7.4-10.4); MONOCYTES % 7.8 % (2.0-8.0); PLATELET 239 x1000/uL (130-400); RED BLOOD CELL COUNT 3.31 mill/uL (4.7-6.1); RED CELL DISTRIBUTION WIDTH 16.8 % (11.6-14.6)
[2020-07-21 08:00] VITALS: BP 150/84
[2020-07-21 08:25] LABS: CHLORIDE 103 mEq/L (98-107)
[2020-07-21] MEDS: DOCUSATE SODIUM SUGAR FREE 100MG/10ML UDC PEG SCH ×2 (09:06→17:32)
[2020-07-21] MEDS: POLYETHYLENE GLYCOL 3350 (17GM) 1 DOSE PACK PEG SCH (09:06)
[2020-07-21] MEDS: LEVETIRACETAM 500MG/5ML CUP PEG SCH ×2 (09:06→20:53)
[2020-07-21] MEDS: ENOXAPARIN 40MG/0.4ML SYR SUBCUT SCH (09:06)
[2020-07-21] MEDS: BACITRACIN 15GM TUBE TOP SCH (09:06)
[2020-07-21] MEDS: ASPIRIN 81MG TABLET PO SCH (09:06)
[2020-07-21] MEDS ORDERED: CLONIDINE 0.1MG TABLET PO PRN (09:30)
[2020-07-21 12:00] VITALS: BP 150/86
[2020-07-21 16:00] VITALS: BP 148/89
[2020-07-21 20:00] VITALS: BP 145/85
[2020-07-21 20:56] LABS: BASOPHILS % 0.9 % (0.0-2.0); EOSINOPHILS % 4.6 % (0.0-5.0); HEMATOCRIT. 30.1 % (42.0-52.0); HEMOGLOBIN. 9.5 g/dL (14.0-18.0); LYMPHOCYTES % 20.7 % (20.0-50.0); MEAN CORPUSCULAR HEMOGLOBIN 28.4 pg (28.0-32.0); MEAN PLATELET VOLUME 9.8 fl (7.4-10.4); MONOCYTES % 8.1 % (2.0-8.0); NEUTROPHILS % 65.7 % (40.0-76.0); PLATELET 225 x1000/uL (130-400); RED BLOOD CELL COUNT 3.35 mill/uL (4.7-6.1); RED CELL DISTRIBUTION WIDTH 16.8 % (11.6-14.6)
[2020-07-21] MEDS: SENNOSIDES/DOCUSATE SOD 8.6/50MG TABLET PEG SCH (21:00)
[2020-07-21 21:01] LABS: INR 1.1; PROTHROMBIN TIME 11.2 sec (9.6-11.0)
[2020-07-22] VITALS: BP 138/85
[2020-07-22] MEDS: GUAIFENESIN 200MG/10ML SUGAR FREE UDC NG PRN ×2 (00:28→08:26)
[2020-07-22] MEDS: SUCRALFATE 1 G/10 ML UDC PO SCH ×5 (00:28→23:37)
[2020-07-22] MEDS: BLOOD SUGAR DIAGNOSTIC STRIP TEST SCH ×5 (00:36→23:37)
[2020-07-22 01:12] LABS: HEMATOCRIT 31.4 % (42.0-52.0); HEMOGLOBIN 10.2 g/dL (14.0-18.0)
[2020-07-22 04:00] VITALS: BP 142/95
[2020-07-22] MEDS: INSULIN LISPRO 100 UNITS/ML SUBCUT SCH ×4 (05:26→17:13)
[2020-07-22 07:17] LABS: HEMATOCRIT 28.4 % (42.0-52.0); HEMOGLOBIN 9.3 g/dL (14.0-18.0)
[2020-07-22 08:00] VITALS: BP 138/96
[2020-07-22] MEDS: ASPIRIN 81MG TABLET PO SCH (08:18)
[2020-07-22] MEDS: POLYETHYLENE GLYCOL 3350 (17GM) 1 DOSE PACK PEG SCH (08:18)
[2020-07-22] MEDS: DOCUSATE SODIUM SUGAR FREE 100MG/10ML UDC PEG SCH ×2 (08:18→17:05)
[2020-07-22] MEDS: LANSOPRAZOLE 30MG DR CAPSULE GT SCH (08:18)
[2020-07-22] MEDS: LEVETIRACETAM 500MG/5ML CUP PEG SCH ×2 (08:18→21:18)
[2020-07-22] MEDS: BACITRACIN 15GM TUBE TOP SCH (08:19)
[2020-07-22 12:00] VITALS: BP 138/81
[2020-07-22 13:11] LABS: HEMATOCRIT 28.7 % (42.0-52.0); HEMOGLOBIN 9.3 g/dL (14.0-18.0)
[2020-07-22 16:00] VITALS: BP 136/94
[2020-07-22 18:54] LABS: HEMATOCRIT 29.1 % (42.0-52.0); HEMOGLOBIN 9.5 g/dL (14.0-18.0)
[2020-07-22 20:00] VITALS: BP 132/79
[2020-07-22] MEDS: SENNOSIDES/DOCUSATE SOD 8.6/50MG TABLET PEG SCH (21:00)
[2020-07-23] VITALS: BP 150/86
[2020-07-23 04:00] VITALS: BP 122/72
[2020-07-23] MEDS: BLOOD SUGAR DIAGNOSTIC STRIP TEST SCH ×3 (05:56→17:11)
[2020-07-23] MEDS: SUCRALFATE 1 G/10 ML UDC PO SCH ×3 (05:56→17:21)
[2020-07-23 08:00] VITALS: BP 133/89
[2020-07-23] MEDS: DOCUSATE SODIUM SUGAR FREE 100MG/10ML UDC PEG SCH ×2 (09:00→17:00)
[2020-07-23] MEDS: POLYETHYLENE GLYCOL 3350 (17GM) 1 DOSE PACK PEG SCH (09:00)
[2020-07-23] MEDS: ASPIRIN 81MG TABLET PO SCH (10:03)
[2020-07-23] MEDS: LEVETIRACETAM 500MG/5ML CUP PEG SCH ×2 (10:03→21:54)
[2020-07-23] MEDS: LANSOPRAZOLE 30MG DR CAPSULE GT SCH (10:03)
[2020-07-23] MEDS: BACITRACIN 15GM TUBE TOP SCH (10:04)
[2020-07-23 12:00] VITALS: BP 140/87
[2020-07-23] MEDS: INSULIN LISPRO 100 UNITS/ML SUBCUT SCH ×3 (12:00→17:11)
[2020-07-23 16:00] VITALS: BP 150/88
[2020-07-23 20:00] VITALS: BP 148/98
[2020-07-23] MEDS: SENNOSIDES/DOCUSATE SOD 8.6/50MG TABLET PEG SCH (21:54)
[2020-07-24] VITALS: BP 142/87
[2020-07-24] MEDS: BLOOD SUGAR DIAGNOSTIC STRIP TEST SCH ×4 (00:31→17:28)
[2020-07-24] MEDS: SUCRALFATE 1 G/10 ML UDC PO SCH ×4 (03:58→17:22)
[2020-07-24 04:00] VITALS: BP 146/86
[2020-07-24] MEDS: INSULIN LISPRO 100 UNITS/ML SUBCUT SCH ×4 (06:00→17:29)
[2020-07-24] MEDS: LANSOPRAZOLE 30MG DR CAPSULE GT SCH (06:19)
[2020-07-24 08:00] VITALS: BP 140/87
[2020-07-24] MEDS: POLYETHYLENE GLYCOL 3350 (17GM) 1 DOSE PACK PEG SCH (09:00)
[2020-07-24] MEDS: ASPIRIN 81MG TABLET PO SCH (10:38)
[2020-07-24] MEDS: LEVETIRACETAM 500MG/5ML CUP PEG SCH ×2 (10:38→21:48)
[2020-07-24] MEDS: DOCUSATE SODIUM SUGAR FREE 100MG/10ML UDC PEG SCH ×2 (10:38→17:00)
[2020-07-24] MEDS: BACITRACIN 15GM TUBE TOP SCH (10:38)
[2020-07-24 12:00] VITALS: BP 145/88
[2020-07-24 16:00] VITALS: BP 145/90
[2020-07-24 20:00] VITALS: BP 139/93
[2020-07-24] MEDS: SENNOSIDES/DOCUSATE SOD 8.6/50MG TABLET PEG SCH (21:48)
[2020-07-25] VITALS: BP 142/86
[2020-07-25] MEDS: SUCRALFATE 1 G/10 ML UDC PO SCH ×4 (01:22→17:49)
[2020-07-25 04:00] VITALS: BP 142/92
[2020-07-25] MEDS: INSULIN LISPRO 100 UNITS/ML SUBCUT SCH ×2 (06:00)
[2020-07-25] MEDS: BLOOD SUGAR DIAGNOSTIC STRIP TEST SCH ×2 (06:34)
[2020-07-25] MEDS: LANSOPRAZOLE 30MG DR CAPSULE GT SCH (06:34)
[2020-07-25 08:00] VITALS: BP 137/94
[2020-07-25] MEDS: DOCUSATE SODIUM SUGAR FREE 100MG/10ML UDC PEG SCH ×2 (09:39→17:49)
[2020-07-25] MEDS: POLYETHYLENE GLYCOL 3350 (17GM) 1 DOSE PACK PEG SCH (09:39)
[2020-07-25] MEDS: BACITRACIN 15GM TUBE TOP SCH (09:39)
[2020-07-25] MEDS: LEVETIRACETAM 500MG/5ML CUP PEG SCH ×2 (09:39→21:06)
[2020-07-25 12:00] VITALS: BP 144/96
[2020-07-25 16:00] VITALS: BP 149/92
[2020-07-25 20:00] VITALS: BP 144/82
[2020-07-25] MEDS: SENNOSIDES/DOCUSATE SOD 8.6/50MG TABLET PEG SCH (21:06)
[2020-07-26] VITALS: BP 129/81
[2020-07-26] MEDS: SUCRALFATE 1 G/10 ML UDC PO SCH ×4 (00:02→17:53)
[2020-07-26 04:00] VITALS: BP 137/88
[2020-07-26] MEDS: LANSOPRAZOLE 30MG DR CAPSULE GT SCH (06:39)
[2020-07-26 08:00] VITALS: BP 137/88
[2020-07-26] MEDS: LEVETIRACETAM 500MG/5ML CUP PEG SCH ×2 (09:02→21:15)
[2020-07-26] MEDS: DOCUSATE SODIUM SUGAR FREE 100MG/10ML UDC PEG SCH ×2 (09:02→17:53)
[2020-07-26] MEDS: POLYETHYLENE GLYCOL 3350 (17GM) 1 DOSE PACK PEG SCH (09:03)
[2020-07-26] MEDS: BACITRACIN 15GM TUBE TOP SCH (09:04)
[2020-07-26] MEDS: ENOXAPARIN 40MG/0.4ML SYR SUBCUT SCH (09:04)
[2020-07-26 12:00] VITALS: BP 156/79
[2020-07-26 16:00] VITALS: BP 151/87
[2020-07-26 20:00] VITALS: BP 148/75
[2020-07-26] MEDS: SENNOSIDES/DOCUSATE SOD 8.6/50MG TABLET PEG SCH (21:00)
[2020-07-27] VITALS: BP 140/87
[2020-07-27 04:00] VITALS: BP 133/58
[2020-07-27] MEDS: SUCRALFATE 1 G/10 ML UDC PO SCH ×5 (05:57→23:51)
[2020-07-27 08:00] VITALS: BP 147/90
[2020-07-27] MEDS: ENOXAPARIN 40MG/0.4ML SYR SUBCUT SCH (10:42)
[2020-07-27] MEDS: DOCUSATE SODIUM SUGAR FREE 100MG/10ML UDC PEG SCH ×2 (10:42→17:52)
[2020-07-27] MEDS: LANSOPRAZOLE 30MG DR CAPSULE GT SCH (10:42)
[2020-07-27] MEDS: POLYETHYLENE GLYCOL 3350 (17GM) 1 DOSE PACK PEG SCH (10:43)
[2020-07-27] MEDS: BACITRACIN 15GM TUBE TOP SCH (10:43)
[2020-07-27] MEDS: LEVETIRACETAM 500MG/5ML CUP PEG SCH ×2 (10:47→23:50)
[2020-07-27 12:00] VITALS: BP 138/82
[2020-07-27 16:00] VITALS: BP 143/80
[2020-07-27] MEDS: SENNOSIDES/DOCUSATE SOD 8.6/50MG TABLET PEG SCH (23:53)
[2020-07-28] MEDS: SUCRALFATE 1 G/10 ML UDC PO SCH ×3 (05:58→18:18)
[2020-07-28] MEDS: LANSOPRAZOLE 30MG DR CAPSULE GT SCH (05:58)
[2020-07-28 08:00] VITALS: BP 133/84
[2020-07-28] MEDS: POLYETHYLENE GLYCOL 3350 (17GM) 1 DOSE PACK PEG SCH (08:20)
[2020-07-28] MEDS: DOCUSATE SODIUM SUGAR FREE 100MG/10ML UDC PEG SCH ×2 (08:20→16:35)
[2020-07-28] MEDS: LEVETIRACETAM 500MG/5ML CUP PEG SCH ×2 (08:20→20:25)
[2020-07-28] MEDS: ENOXAPARIN 40MG/0.4ML SYR SUBCUT SCH (08:21)
[2020-07-28] MEDS: BACITRACIN 15GM TUBE TOP SCH (08:21)
[2020-07-28 12:00] VITALS: BP 113/86
[2020-07-28 16:00] VITALS: BP 123/78
[2020-07-28 20:00] VITALS: BP 122/83
[2020-07-28] MEDS: SENNOSIDES/DOCUSATE SOD 8.6/50MG TABLET PEG SCH (20:25)
[2020-07-29] VITALS: BP 131/85
[2020-07-29] MEDS: SUCRALFATE 1 G/10 ML UDC PO SCH ×4 (01:00→17:41)
[2020-07-29 04:00] VITALS: BP 120/84
[2020-07-29] MEDS: LANSOPRAZOLE 30MG DR CAPSULE GT SCH (06:25)
[2020-07-29 08:00] VITALS: BP 135/81
[2020-07-29] MEDS: POLYETHYLENE GLYCOL 3350 (17GM) 1 DOSE PACK PEG SCH (09:00)
[2020-07-29] MEDS: DOCUSATE SODIUM SUGAR FREE 100MG/10ML UDC PEG SCH ×2 (09:11→16:37)
[2020-07-29] MEDS: ENOXAPARIN 40MG/0.4ML SYR SUBCUT SCH (09:11)
[2020-07-29] MEDS: LEVETIRACETAM 500MG/5ML CUP PEG SCH ×2 (09:11→21:45)
[2020-07-29] MEDS: BACITRACIN 15GM TUBE TOP SCH (09:12)
[2020-07-29 12:00] VITALS: BP 124/88
[2020-07-29 16:00] VITALS: BP 138/82
[2020-07-29 20:00] VITALS: BP 140/89
[2020-07-29] MEDS: SENNOSIDES/DOCUSATE SOD 8.6/50MG TABLET PEG SCH (21:45)
[2020-07-30] VITALS: BP 133/86
[2020-07-30] MEDS: SUCRALFATE 1 G/10 ML UDC PO SCH ×4 (00:02→17:24)
[2020-07-30 04:00] VITALS: BP 126/81
[2020-07-30] MEDS: LANSOPRAZOLE 30MG DR CAPSULE GT SCH (06:38)
[2020-07-30 08:00] VITALS: BP 130/78
[2020-07-30] MEDS: POLYETHYLENE GLYCOL 3350 (17GM) 1 DOSE PACK PEG SCH (08:45)
[2020-07-30] MEDS: DOCUSATE SODIUM SUGAR FREE 100MG/10ML UDC PEG SCH ×2 (08:45→17:24)
[2020-07-30] MEDS: LEVETIRACETAM 500MG/5ML CUP PEG SCH ×2 (09:11→21:11)
[2020-07-30] MEDS: ENOXAPARIN 40MG/0.4ML SYR SUBCUT SCH (09:11)
[2020-07-30] MEDS: BACITRACIN 15GM TUBE TOP SCH (09:11)
[2020-07-30 12:00] VITALS: BP 125/75
[2020-07-30 16:00] VITALS: BP 120/83
[2020-07-30 20:00] VITALS: BP 138/84
[2020-07-30] MEDS: SENNOSIDES/DOCUSATE SOD 8.6/50MG TABLET PEG SCH (21:11)
[2020-07-31 03:08] VITALS: BP 146/91
[2020-07-31] MEDS: LANSOPRAZOLE 30MG DR CAPSULE GT SCH (06:41)
[2020-07-31 08:00] VITALS: BP 150/83
[2020-07-31] MEDS: LEVETIRACETAM 500MG/5ML CUP PEG SCH ×2 (08:16→21:31)
[2020-07-31] MEDS: DOCUSATE SODIUM SUGAR FREE 100MG/10ML UDC PEG SCH ×2 (08:16→17:21)
[2020-07-31] MEDS: ENOXAPARIN 40MG/0.4ML SYR SUBCUT SCH (08:16)
[2020-07-31] MEDS: POLYETHYLENE GLYCOL 3350 (17GM) 1 DOSE PACK PEG SCH (08:17)
[2020-07-31] MEDS: BACITRACIN 15GM TUBE TOP SCH (08:17)
[2020-07-31 12:00] VITALS: BP 150/89
[2020-07-31 16:00] VITALS: BP 138/86
[2020-07-31 20:00] VITALS: BP 128/79
[2020-07-31] MEDS: SENNOSIDES/DOCUSATE SOD 8.6/50MG TABLET PEG SCH (21:00)
[2020-08-01] VITALS: BP 132/75
[2020-08-01 04:00] VITALS: BP 114/64
[2020-08-01] MEDS: LANSOPRAZOLE 30MG DR CAPSULE GT SCH ×2 (06:25→09:32)
[2020-08-01 08:00] VITALS: BP 150/86
[2020-08-01] MEDS: LEVETIRACETAM 500MG/5ML CUP PEG SCH (09:32)
[2020-08-01] MEDS: DOCUSATE SODIUM SUGAR FREE 100MG/10ML UDC PEG SCH (09:32)
[2020-08-01] MEDS: BACITRACIN 15GM TUBE TOP SCH (09:32)
[2020-08-01] MEDS: ENOXAPARIN 40MG/0.4ML SYR SUBCUT SCH (09:32)
[2020-08-01] MEDS: POLYETHYLENE GLYCOL 3350 (17GM) 1 DOSE PACK PEG SCH (09:32)
[2020-08-01 12:00] VITALS: BP 134/86
[2020-08-01 16:00] VITALS: BP_SYST 104; BP_SYST 124; BP_DIAS 56; BP_DIAS 74
[2020-08-01 20:00] VITALS: BP 131/90
[2020-08-01] MEDS: LEVETIRACETAM 500MG/5ML CUP GT SCH (21:45)
[2020-08-02] VITALS: BP 149/77
[2020-08-02 04:00] VITALS: BP 139/72
[2020-08-02 08:00] VITALS: BP 131/78
[2020-08-02] MEDS: BACITRACIN 15GM TUBE TOP SCH (09:38)
[2020-08-02] MEDS: ENOXAPARIN 40MG/0.4ML SYR SUBCUT SCH (09:38)
[2020-08-02] MEDS: LEVETIRACETAM 500MG/5ML CUP GT SCH (09:39)
[2020-08-02 14:59] VITALS: BP 132/81
== END 2020-08-02 16:08 | DRG 720 ==
LOC: ER 22:49 → 7EST 06-18 03:18 → SUPCPDRO 06-18 07:20 → ENRESERV 06-19 10:21 → 5EST 06-20 11:04 → 7EST 06-28 05:01 → 5EST 06-29 06:08 → 6EST 07-11 13:25
PROVIDERS: ADMIT Internal Medicine; ATTEND Internal Medicine
PROC: 02HV33Z Insertion of Infusion Device into Superior Vena Cava, Percutaneous Approach (ICD-10-PCS; 2020-06-21)
PROC: B548ZZA Ultrasonography of Superior Vena Cava, Guidance (ICD-10-PCS; 2020-06-21)
PROC: 5A09357 Assistance with Respiratory Ventilation, Less than 24 Consecutive Hours, Continuous Positive Airway Pressure (ICD-10-PCS; 2020-06-24)
PROC: 0DB68ZX Excision of Stomach, Via Natural or Artificial Opening Endoscopic, Diagnostic (ICD-10-PCS; principal; 2020-07-02)
PROC: 0DH63UZ Insertion of Feeding Device into Stomach, Percutaneous Approach (ICD-10-PCS; 2020-07-02)
DX: A41.9 Sepsis, unspecified organism (principal); J96.01 Acute respiratory failure with hypoxia; E43 Unspecified severe protein-calorie malnutrition; R65.20 Severe sepsis without septic shock; I11.9 Hypertensive heart disease without heart failure; F79 Unspecified intellectual disabilities; E78.5 Hyperlipidemia, unspecified; D69.6 Thrombocytopenia, unspecified; E87.5 Hyperkalemia; N17.9 Acute kidney failure, unspecified; G92 Toxic encephalopathy; E11.65 Type 2 diabetes mellitus with hyperglycemia; R47.02 Dysphasia; R62.50 Unspecified lack of expected normal physiological development in childhood; D50.9 Iron deficiency anemia, unspecified; N39.0 Urinary tract infection, site not specified; E87.0 Hyperosmolality and hypernatremia; D52.9 Folate deficiency anemia, unspecified; Z68.31 Body mass index [BMI] 31.0-31.9, adult; E66.9 Obesity, unspecified; E87.2 Acidosis; J96.02 Acute respiratory failure with hypercapnia; G40.909 Epilepsy, unspecified, not intractable, without status epilepticus; L89.616 Pressure-induced deep tissue damage of right heel; K29.50 Unspecified chronic gastritis without bleeding; K29.80 Duodenitis without bleeding; N40.0 Benign prostatic hyperplasia without lower urinary tract symptoms; R13.12 Dysphagia, oropharyngeal phase; Z20.822 Contact with and (suspected) exposure to COVID-19; J18.9 Pneumonia, unspecified organism; Z79.899 Other long term (current) drug therapy
CPT/HCPCS: 36415; 36600; 70551; 71045; 71250; 76770; 76857; 76937; 80048; 80053; 80184; 80185; 80202; 81003; 82375; 82805; 82962; 83036; 83605; 83735; 84100; 84132; 84145; 85014; 85018; 85025; 85027; 87070; 87426; 87449; 87635; 88305; 88313; 92610; 93005; 93970; 94640; 94667; 96361; 96365; 96368; 96375; 97110; 97162; 97164; 97530; 99291; A6261; C1725; C1893; C9113; J0456; J0692; J0696; J1100; J1165; J1650; J1815; J2250; J2704; J2765; J2920; J3010; J3370; J3411; J3490; J7030; J7040; J7050; J7060; J7070; J7608; P9047; A4315